=== PATIENT | male | born 1935 | race Caucasian/White ===

== ENCOUNTER 2017-02-15 04:25 | Emergency (ER) | payer MEDICARE, OTHER ==
[~2017-02-15] VITALS: Ht 170.2 cm; Wt 93.2 kg
[2017-02-15] MEDS ORDERED: AMLO10TA2 PO ×2 (04:33)
[2017-02-15] MEDS ORDERED: HYDR12.57 PO ×2 (04:33)
[2017-02-15] MEDS ORDERED: LEVO.075 PO ×2 (04:33)
[2017-02-15] MEDS ORDERED: MEGATAB4 ×2 (04:33)
[2017-02-15] MEDS ORDERED: VITA-136 ×2 (04:33)
[2017-02-15] MEDS ORDERED: ASPI81CH CHEW ×2 (04:33)
[2017-02-15] MEDS ORDERED: COQ-50CA2 PO ×2 (04:33)
[2017-02-15] MEDS ORDERED: SIMVPOW ×2 (04:33)
[2017-02-15] MEDS ORDERED: VITA100036 PO ×2 (04:33)
[2017-02-15] MEDS ORDERED: PLAV75TA29 PO ×2 (04:33)
[2017-02-15 04:34] VITALS: BP 167/79; PULSE 56; RESP 16; TEMP 98.2; O2SAT 97
[2017-02-15] MEDS ORDERED: SODIUM CHLORIDE 0.9% FLUSH 10 ML FLUSH IV FLUSH PRN (04:45)
--- NOTE | 2017-02-15 04:47 | PD ---
HPI Chief Complaint: Chest Pain Time Seen by Provider: 04:45 Travel History International Travel<30 days: No Contact w/Intl Traveler<30days: No Traveled to known affect area: No History of Present Illness HPI Patient is an 82-year-old male presents emergency department for evaluation of epigastric pain without radiation, nausea without vomiting, mild presyncopal type dizziness. Patient states started approximately 4:30 this morning. He is visiting from out of town, states he has a history of heart attack and stents but his symptoms were left shoulder pain and chest pain when this happened and completely different from current. His current pain has not happened to him before. Denies any diarrhea denies any fever. PFSH Past Medical History Cancer: Yes (prostate) High Cholesterol: Yes Hypertension: Yes Medical other: Yes (gallstones) Myocardial Infarction: Yes (3 stents) Thyroid Disease: Yes Past Surgical History Appendectomy: Yes Other Surgery: Yes (thyroidectomy) Social History Alcohol Use: No Tobacco Use: No Substance Use: No Allergies-Medications (Allergen,Severity, Reaction): Coded Allergies: Penicillin (Verified Allergy, Unknown, 02/15/17) Reported Meds & Prescriptions Reported Meds & Active Scripts Active Ultram (Tramadol HCl) 50 Mg Tab 50 Mg PO Q6H PRN Zofran Odt (Ondansetron Odt) 4 Mg Tab 4 Mg SL Q6HR PRN Reported Vitamin E (Vitamin E Acetate) 400 Unit Capsule Vitamin D3 (Cholecalciferol) 1,000 Unit Cap 1,000 Units PO DAILY Synthroid (Levothyroxine Sodium) 75 Mcg Tab 75 Mcg PO DAILY Simvastatin (Simvastain (Bulk)) 1 Pow Pow Plavix (Clopidogrel Bisulfate) 75 Mg Tab 75 Mg PO DAILY Guerrero Multivitamin For Men (Multiple Vitamins W/ Minerals) 1 Tab Tab Hydrochlorothiazide 12.5 Mg Cap 10 Mg PO DAILY Coq-10 (Coenzyme Q10 (Ubidecarenone)) 50 Mg Cap 100 Mg PO DAILY Aspirin 81 Mg Chew 81 Mg CHEW DAILY Amlodipine (Amlodipine Besylate) 10 Mg Tab 10 Mg PO DAILY Review of Systems Except as stated in HPI: all other systems reviewed are Neg Physical Exam Narrative GENERAL: Well-developed well-nourished, appears younger than stated age in no obvious distress. SKIN: Focused skin assessment warm/dry. HEAD: Atraumatic. Normocephalic. EYES: Pupils equal and round. No scleral icterus. No injection or drainage. ENT: No nasal bleeding or discharge. Mucous membranes pink and moist. NECK: Trachea midline. No JVD. CARDIOVASCULAR: Regular rate and rhythm. No murmur appreciated. RESPIRATORY: No accessory muscle use. Clear to auscultation. Breath sounds equal bilaterally. GASTROINTESTINAL: Abdomen soft, non-tender, nondistended. Hepatic and splenic margins not palpable. MUSCULOSKELETAL: No obvious deformities. No clubbing. No cyanosis. No edema. NEUROLOGICAL: Awake and alert. No obvious cranial nerve deficits. Motor grossly within normal limits. Normal speech. PSYCHIATRIC: Appropriate mood and affect; insight and judgment normal. Data Data Last Documented VS Vital Signs Date Time Temp Pulse Resp B/P Pulse Ox O2 Delivery O2 Flow Rate FiO2 02/15/17 05:44 98 Room Air 02/15/17 05:44 58 16 140/69 02/15/17 04:34 98.2 Orders Complete Blood Count With Diff (02/15/17 04:45) Comprehensive Metabolic Panel (02/15/17 04:45) Lipase (02/15/17 04:45) Prothrombin Time / Inr (Pt) (02/15/17 04:45) Act Partial Throm Time (Ptt) (02/15/17 04:45) Ct Abd/Pel W Iv Contrast(Rout) (02/15/17 04:45) Iv Access Insert/Monitor (02/15/17 04:45) Ecg Monitoring (02/15/17 04:45) Oximetry (02/15/17 04:45) Sodium Chloride 0.9% Flush (Ns Flush) (02/15/17 04:45) Chest, Single Ap (02/15/17 ) Troponin I (02/15/17 04:45) Al-Mag Hy-Si 40-40-4 Mg/Ml Liq (Mag-Al P (02/15/17 05:45) Lidocaine 2% Viscous (Xylocaine 2% Visco (02/15/17 05:45) Ondansetron Inj (Zofran Inj) (02/15/17 05:46) Ondansetron Inj (Zofran Inj) (02/15/17 06:00) Ketorolac Inj (Toradol Inj) (02/15/17 06:00) Iohexol 350 Inj (Omnipaque 350 Inj) (02/15/17 06:18) Labs Laboratory Tests Test 02/15/17 04:50 White Blood Count 6.7 TH/MM3 Red Blood Count 4.76 MIL/MM3 Hemoglobin 14.7 GM/DL Hematocrit 44.4 % Mean Corpuscular Volume 93.3 FL Mean Corpuscular Hemoglobin 30.9 PG Mean Corpuscular Hemoglobin 33.1 % Concent Red Cell Distribution Width 12.8 % Platelet Count 169 TH/MM3 Mean Platelet Volume 8.2 FL Neutrophils (%) (Auto) 42.1 % Lymphocytes (%) (Auto) 43.3 % Monocytes (%) (Auto) 11.3 % Eosinophils (%) (Auto) 2.5 % Basophils (%) (Auto) 0.8 % Neutrophils # (Auto) 2.8 TH/MM3 Lymphocytes # (Auto) 2.9 TH/MM3 Monocytes # (Auto) 0.8 TH/MM3 Eosinophils # (Auto) 0.2 TH/MM3 Basophils # (Auto) 0.1 TH/MM3 CBC Comment DIFF FINAL Differential Comment Prothrombin Time 10.4 SEC Prothromb Time International 0.9 RATIO Ratio Activated Partial 25.2 SEC Thromboplast Time Sodium Level 141 MEQ/L Potassium Level 3.5 MEQ/L Chloride Level 105 MEQ/L Carbon Dioxide Level 27.1 MEQ/L Anion Gap 9 MEQ/L Blood Urea Nitrogen 22 MG/DL Creatinine 1.20 MG/DL Estimat Glomerular Filtration 58 ML/MIN Rate Random Glucose 127 MG/DL Calcium Level 8.4 MG/DL Total Bilirubin 0.3 MG/DL Aspartate Amino Transf 27 U/L (AST/SGOT) Alanine Aminotransferase 32 U/L (ALT/SGPT) Alkaline Phosphatase 80 U/L Troponin I LESS THAN 0.02 NG/ML Total Protein 7.0 GM/DL Albumin 3.6 GM/DL Lipase 312 U/L [facility] Medical Decision Making Medical Screen Exam Complete: Yes Emergency Medical Condition: Yes Interpretation(s) EKG shows sinus first degree heart block intervals otherwise within normal limits. No concerning ST segment changes. Normal R-wave progression. Normal axis. No abnormal EKG. Differential Diagnosis Biliary colic, cholecystitis, gastritis, pancreatitis, bowel obstruction. Narrative Course Last 24 hours Impressions Abdomen/Pelvis CT 02/15/17 5122 Signed Impressions: Service Date/Time: Wednesday, February 15, 2017 06:04 - CONCLUSION: 1. Multiple punctate calcified gallstones with a single dominant 1.3 cm rim calcified stone. No biliary obstruction. 2. Old granulomatous disease. 3. Parapelvic cysts in the kidneys bilaterally. 4. Prominent prostate. Gabe Bills MD Chest X-Ray 02/15/17 0000 Signed Impressions: Service Date/Time: Wednesday, February 15, 2017 04:42 - CONCLUSION: 1. Old granulomatous disease. 2. No acute infiltrate. Gabe Bills MD Patient had episode of dry heaving after GI cocktail, given toradol and zofran. Feeling better. patient has benign abdomen. Really his history suggests biliary colic but labs and ct fairly reassuring. With his gall stones suggested he could have in-patient surgical consultation which would be fairly elective but he would like discharge to follow up after his vacation. He seems reliable to return and discussed return to ED criteria. Diagnosis Primary Impression: Biliary colic Scripts Tramadol (Ultram)50 Mg Tab50 Mg PO Q6H PRN (PAIN) #15 TAB Ref 0 Prov:Arnold Moore MD 02/15/17 Ondansetron Odt (Zofran Odt)4 Mg Tab4 Mg SL Q6HR PRN (Nausea/Vomiting) #30 TAB Ref 0 Prov:Arnold Moore MD 02/15/17 Disposition: 01 DISCHARGE HOME Condition: Stable Arnold Moore MD Feb 15, 2017 04:47
[2017-02-15 05:05] LABS: AUTOMATED NEUTROPHIL # 2.8 TH/MM3 (1.8-7.7); BASOPHIL # 0.1 TH/MM3 (0-0.2); BASOPHIL % 0.8 % (0.0-2.0); EOSINOPHIL # 0.2 TH/MM3 (0-0.4); EOSINOPHIL % 2.5 % (0.0-4.0); HEMATOCRIT 44.4 % (39.0-51.0); HEMO FLAGS DIFF FINAL; LYMPH % 43.3 % (9.0-44.0); LYMPHOCYTE # 2.9 TH/MM3 (1.0-4.8); MEAN CELL VOLUME 93.3 FL (80.0-100.0); MEAN CORPUSCULAR HEMOGLOBIN 30.9 PG (27.0-34.0); MEAN CORPUSCULAR HGB CONC 33.1 % (32.0-36.0); MONO % 11.3 % (0.0-8.0); NEUT % 42.1 % (16.0-70.0); PLATELET COUNT 169 TH/MM3 (150-450); RED BLOOD COUNT 4.76 MIL/MM3 (4.50-5.90); RED CELL DISTRIBUTION WIDTH 12.8 % (11.6-17.2); WHITE BLOOD COUNT 6.7 TH/MM3 (4.0-11.0)
[2017-02-15 05:21] LABS: APTT (PATIENT) 25.2 SEC (24.3-30.1); INTERNATIONAL NORMALIZED RATIO 0.9 RATIO; PROTHROMBIN TIME - PATIENT 10.4 SEC (9.8-11.6)
[2017-02-15 05:25] LABS: ALKALINE PHOSPHATASE 80 U/L (45-117); TOTAL BILIRUBIN ADULT 0.3 MG/DL (0.2-1.0)
--- NOTE | 2017-02-15 05:43 | RADRPT ---
EXAM DATE/TIME: 02/15/2017 04:42 [facility] COMPARISON: No previous studies available for comparison. INDICATIONS : Abdominal pain. MEDICAL HISTORY : Hypertension. Myocardial infarction. SURGICAL HISTORY : Coronary artery stent. ENCOUNTER: Initial ACUITY: 1 day PAIN SCORE: 0/10 LOCATION: Right chest FINDINGS: A single view of the chest demonstrates the lungs to be symmetrically aerated with granulomatous type calcifications. No acute infiltrate or effusion. Heart size is normal. Osseous structures are intact . CONCLUSION: 1. Old granulomatous disease. 2. No acute infiltrate. Gabe Bills MD on February 15, 2017 at 5:40 Board Certified Radiologist. This report was verified electronically.
[2017-02-15 05:44] VITALS: BP 140/69; PULSE 58; RESP 16; O2SAT 98
[2017-02-15] MEDS ORDERED: LIDOCAINE VISCOUS 2% SOLN 15 ML UDC PO ONE (05:45)
[2017-02-15] MEDS ORDERED: ALUMINUM/MAGNESIUM/SIMETH 30 ML CUP PO ONE (05:45)
[2017-02-15] MEDS ORDERED: ONDANSETRON HCL 4 MG/2 ML VIAL ONE (05:46)
[2017-02-15 05:55] LABS: ALT (GPT) 32 U/L (12-78); ANION GAP 9 MEQ/L (5-15); AST (GOT) 27 U/L (15-37); BICARBONATE 27.1 MEQ/L (21.0-32.0); BLOOD UREA NITROGEN 22 MG/DL (7-18); CHLORIDE 105 MEQ/L (98-107); GLOMERULAR FILTRATION RATE 58 ML/MIN (>89); SODIUM (NA) 141 MEQ/L (136-145)
[2017-02-15 05:56] LABS: POTASSIUM 3.5 MEQ/L (3.5-5.1)
[2017-02-15] MEDS ORDERED: KETOROLAC TROMETHAMINE 30 MG/ML (IVP) VIAL IV PUSH ONE (06:00)
[2017-02-15] MEDS ORDERED: ONDANSETRON HCL 4 MG/2 ML VIAL IV PUSH ONE (06:00)
[2017-02-15] MEDS ORDERED: IOHEXOL 350 MG/ML 10 ML VIAL (for RAD DIAG) IV ONE (06:18)
--- NOTE | 2017-02-15 06:27 | RADRPT ---
EXAM DATE/TIME: 02/15/2017 06:04 [facility] COMPARISON: No previous studies available for comparison. INDICATIONS : Epigastric pain. IV CONTRAST: 100 cc Omnipaque 350 (iohexol) IV ORAL CONTRAST: No oral contrast ingested. RADIATION DOSE: 11.252 CTDIvol (mGy) MEDICAL HISTORY : Cardiovascular disease. Hypertension. Carcinoma, prostate. SURGICAL HISTORY : Appendectomy. ENCOUNTER: Initial ACUITY: 1 day PAIN SCALE: 7/10 LOCATION: epigastric TECHNIQUE: Volumetric scanning of the abdomen and pelvis was performed. Using automated exposure control and ad justment of the mA and/or kV according to patient size, radiation dose was kept as low as reasonably achievable to obtain optimal diagnostic quality images. DICOM format image data is available electro nically for review and comparison. FINDINGS: LOWER LUNGS: Multiple punctate granulomatous type calcifications in the lung bases. No acute infiltrate LIVER: Homogeneous density without lesion. There is no dilation of the biliary tree. Multiple punctate calc ified gallstones with a single dominant 1.3 cm rim calcified stone. No biliary obstruction. SPLEEN: Normal in size with extensive punctate granulomatous calcifications. PANCREAS: Within normal limits. KIDNEYS: Normal in size and shape. There is no mass, stone or hydronephrosis. Multiple bilateral parapelvic c ysts ADRENAL GLANDS: Within normal limits. VASCULAR: There is no aortic aneurysm. BOWEL/MESENTERY: The stomach, small bowel, and colon demonstrate no acute abnormality. There is no free intraperitone al air or fluid. ABDOMINAL WALL: Within normal limits. RETROPERITONEUM: There is no lymphadenopathy. BLADDER: No wall thickening or mass. REPRODUCTIVE: Prominent prostate measuring 6 cm in diameter with a few prostatic seeds identified. INGUINAL: There is no lymphadenopathy or hernia. MUSCULOSKELETAL: Within normal limits for patient age. CONCLUSION: 1. Multiple punctate calcified gallstones with a single dominant 1.3 cm rim calcified stone. No bilia ry obstruction. 2. Old granulomatous disease. 3. Parapelvic cysts in the kidneys bilaterally. 4. Prominent prostate. Gabe Bills MD on February 15, 2017 at 6:19 Board Certified Radiologist. This report was verified electronically.
[2017-02-15] MEDS ORDERED: ULTR50TA5 PO (06:46)
[2017-02-15] MEDS ORDERED: ZOFR4TAB3 SL (06:46)
--- NOTE | 2017-02-15 15:44 | EKG ---
Date Performed: 02/15/2017 Time Performed: 04:32:57 PTAGE: 82 years EKG: Sinus rhythm WITH FIRST DEGREE AV BLOCK SEPTAL MYOCARDIAL INFARCTION ABNORMAL ECG NO PREVIOUS TRACING DOCTOR: Tyrone Zhu Interpretating Date/Time 02/15/2017 15:43:40
== END 2017-02-15 07:19 | disposition home or self-care (01) ==
LOC: NEPC 04:25
DX: K80.70 Calculus of gallbladder and bile duct without cholecystitis without obstruction (principal); I44.0 Atrioventricular block, first degree; E78.00 Pure hypercholesterolemia, unspecified; I10 Essential (primary) hypertension; I25.2 Old myocardial infarction; E07.9 Disorder of thyroid, unspecified; Z79.899 Other long term (current) drug therapy
CPT/HCPCS: 71010; 74177; 80053; 83690; 84484; 85025; 85610; 85730; 93005; 96374; 96375; 99285; J1885; J2405; Q9967

== ENCOUNTER 2017-02-15 16:03 | Inpatient (IN) | payer MEDICARE, OTHER ==
[~2017-02-15] VITALS: Ht 170.2 cm; Wt 91.9 kg
[~2017-02-15 16:03] MED LIST: AMLO10TA2 PO; ASPI81CH CHEW; COQ-50CA2 PO; HYDR12.57 PO; LEVO.075 PO; MEGATAB4; PLAV75TA29 PO; SIMVPOW; ULTR50TA5 PO; VITA-136; VITA100036 PO; ZOFR4TAB3 SL
[2017-02-15 16:07] VITALS: BP 162/79; PULSE 88; RESP 14; TEMP 99.8; O2SAT 98
[2017-02-15 16:21] VITALS: BP 155/74; PULSE 79; RESP 16; TEMP 98.8; O2SAT 97
--- NOTE | 2017-02-15 16:35 | PD ---
HPI Chief Complaint: fever Time Seen by Provider: 16:15 Travel History International Travel<30 days: No Contact w/Intl Traveler<30days: No Traveled to known affect area: No History of Present Illness HPI 82-year-old male presents with fever that developed this afternoon after he was discharged from the emergency department this morning. He states he is still having pain in his abdomen as well. He denies any other changes since he was just here this morning. He states he did not take any medication and the fever is coming down on its own. Quality is high. Severity here is 99.8. he denies specific modifying factors. He is visiting here from [place] and will be here the rest of the week. PFSH Past Medical History Hx Anticoagulant Therapy: Yes (plavix) Cancer: Yes (prostate) Cardiovascular Problems: Yes High Cholesterol: Yes Hypertension: Yes Medical other: Yes (NEUROPATHY) Myocardial Infarction: Yes (3 stents) Thyroid Disease: Yes Influenza Vaccination: No Past Surgical History Appendectomy: Yes Cardiac Surgery: Yes (3 CARDIAC STENTS-last August 2015) Other Surgery: Yes (thyroidectomy / LYPOMA REMOVED FROM BACK) Social History Alcohol Use: No Tobacco Use: No Substance Use: No Allergies-Medications (Allergen,Severity, Reaction): Coded Allergies: Penicillin (Verified Allergy, Unknown, 02/15/17) Reported Meds & Prescriptions Reported Meds & Active Scripts Active Ultram (Tramadol HCl) 50 Mg Tab 50 Mg PO Q6H PRN Zofran Odt (Ondansetron Odt) 4 Mg Tab 4 Mg SL Q6HR PRN Reported Vitamin E (Vitamin E Acetate) 400 Unit Capsule Vitamin D3 (Cholecalciferol) 1,000 Unit Cap 1,000 Units PO DAILY Synthroid (Levothyroxine Sodium) 75 Mcg Tab 75 Mcg PO DAILY Simvastatin (Simvastain (Bulk)) 1 Pow Pow Plavix (Clopidogrel Bisulfate) 75 Mg Tab 75 Mg PO DAILY Guerrero Multivitamin For Men (Multiple Vitamins W/ Minerals) 1 Tab Tab Hydrochlorothiazide 12.5 Mg Cap 10 Mg PO DAILY Coq-10 (Coenzyme Q10 (Ubidecarenone)) 50 Mg Cap 100 Mg PO DAILY Aspirin 81 Mg Chew 81 Mg CHEW DAILY Amlodipine (Amlodipine Besylate) 10 Mg Tab 10 Mg PO DAILY Review of Systems Except as stated in HPI: all other systems reviewed are Neg Physical Exam Narrative GENERAL: Well-nourished, well-developed patient. SKIN: Warm and dry. HEAD: Normocephalic and atraumatic. EYES: No injection or drainage. ENT: No nasal drainage noted. NECK: Supple, trachea midline. CARDIOVASCULAR: Regular rate and rhythm RESPIRATORY: Breath sounds equal bilaterally at apices. No accessory muscle use. GASTROINTESTINAL: Abdomen soft, tender right upper quadrant, nondistended. NEUROLOGICAL: Awake and alert. Moves all extremities. Normal speech. Data Data Last Documented VS Vital Signs Date Time Temp Pulse Resp B/P Pulse Ox O2 Delivery O2 Flow Rate FiO2 02/15/17 17:46 75 16 137/68 96 Room Air 02/15/17 16:21 98.8 Orders Complete Blood Count With Diff (02/15/17 16:15) Comprehensive Metabolic Panel (02/15/17 16:15) Lipase (02/15/17 16:15) Iv Access Insert/Monitor (02/15/17 16:15) Us Abdomen Gallbladder (02/15/17 ) Oximetry (02/15/17 16:15) Urinalysis - C+S If Indicated (02/15/17 16:35) Ciprofloxacin 400 Mg Premix (Cipro 400 M (02/15/17 17:45) Metronidazole 500 Mg Inj (Flagyl 500 Mg (02/15/17 17:45) Morphine Inj (Morphine Inj) (02/15/17 17:45) Admit Order (Ed Use Only) (02/15/17 18:37) Labs Laboratory Tests Test 02/15/17 02/15/17 16:27 16:40 White Blood Count 13.0 TH/MM3 Red Blood Count 4.79 MIL/MM3 Hemoglobin 14.9 GM/DL Hematocrit 44.7 % Mean Corpuscular Volume 93.4 FL Mean Corpuscular Hemoglobin 31.1 PG Mean Corpuscular Hemoglobin 33.3 % Concent Red Cell Distribution Width 13.0 % Platelet Count 167 TH/MM3 Mean Platelet Volume 7.8 FL Neutrophils (%) (Auto) 79.5 % Lymphocytes (%) (Auto) 11.5 % Monocytes (%) (Auto) 8.0 % Eosinophils (%) (Auto) 0.5 % Basophils (%) (Auto) 0.5 % Neutrophils # (Auto) 10.3 TH/MM3 Lymphocytes # (Auto) 1.5 TH/MM3 Monocytes # (Auto) 1.0 TH/MM3 Eosinophils # (Auto) 0.1 TH/MM3 Basophils # (Auto) 0.1 TH/MM3 CBC Comment DIFF FINAL Differential Comment Sodium Level 140 MEQ/L Potassium Level 3.6 MEQ/L Chloride Level 105 MEQ/L Carbon Dioxide Level 26.4 MEQ/L Anion Gap 9 MEQ/L Blood Urea Nitrogen 17 MG/DL Creatinine 1.15 MG/DL Estimat Glomerular Filtration 61 ML/MIN Rate Random Glucose 122 MG/DL Calcium Level 8.4 MG/DL Total Bilirubin 0.6 MG/DL Aspartate Amino Transf 22 U/L (AST/SGOT) Alanine Aminotransferase 31 U/L (ALT/SGPT) Alkaline Phosphatase 67 U/L Total Protein 7.2 GM/DL Albumin 3.6 GM/DL Lipase 155 U/L Urine Color YELLOW Urine Turbidity CLEAR Urine pH 5.5 Urine Specific [place] 1.031 Urine Protein NEG mg/dL Urine Glucose (UA) NEG mg/dL Urine Ketones NEG mg/dL Urine Occult Blood NEG Urine Nitrite NEG Urine Bilirubin NEG Urine Urobilinogen LESS THAN 2.0 MG/DL Urine Leukocyte Esterase NEG Urine RBC LESS THAN 1 /hpf Urine WBC LESS THAN 1 /hpf Urine Squamous Epithelial <1 /hpf Cells Urine Mucus FEW /lpf Microscopic Urinalysis Comment CULT NOT INDICATED MDM Medical Decision Making Medical Screen Exam Complete: Yes Emergency Medical Condition: Yes Medical Record Reviewed: Yes (past history confirmed) Interpretation(s) CBC & BMP Diagram 02/15/17 16:27 Last 24 hours Impressions Gall Bladder Ultrasound 02/15/17 0000 Signed Impressions: Service Date/Time: Wednesday, February 15, 2017 16:53 - CONCLUSION: 1. Cholelithiasis with gallbladder wall thickening concerning for cholecystitis. 2. Nonvisualization of the pancreas. 3. Mildly echogenic liver which can be seen with mild hepatic steatosis. Chavez Munoz MD Differential Diagnosis Cholecystitis, cholelithiasis, UTI, URI Narrative Course We will recheck blood work and check gallbladder ultrasound and reevaluate ed workup with cholecystitis, will dose with ciprofloxacin and flagyl and admit for further care Physician Communication Physician Communication dr cedillo states to medicine, keep npo and antibitoics, will need cardiac clearance dr negron agrees to admit Diagnosis Primary Impression: Cholecystitis Admitting Information Admitting Physician Requests: Admit Elsa Yo MD Feb 15, 2017 16:35
[2017-02-15 16:37] LABS: AUTOMATED NEUTROPHIL # 10.3 TH/MM3 (1.8-7.7); BASOPHIL # 0.1 TH/MM3 (0-0.2); BASOPHIL % 0.5 % (0.0-2.0); EOSINOPHIL # 0.1 TH/MM3 (0-0.4); EOSINOPHIL % 0.5 % (0.0-4.0); HEMATOCRIT 44.7 % (39.0-51.0); HEMO FLAGS DIFF FINAL; LYMPH % 11.5 % (9.0-44.0); LYMPHOCYTE # 1.5 TH/MM3 (1.0-4.8); MEAN CELL VOLUME 93.4 FL (80.0-100.0); MEAN CORPUSCULAR HEMOGLOBIN 31.1 PG (27.0-34.0); MEAN CORPUSCULAR HGB CONC 33.3 % (32.0-36.0); NEUT % 79.5 % (16.0-70.0); PLATELET COUNT 167 TH/MM3 (150-450); RED BLOOD COUNT 4.79 MIL/MM3 (4.50-5.90)
[2017-02-15 16:54] LABS: ALT (GPT) 31 U/L (12-78); ANION GAP 9 MEQ/L (5-15); AST (GOT) 22 U/L (15-37); BICARBONATE 26.4 MEQ/L (21.0-32.0); BLOOD UREA NITROGEN 17 MG/DL (7-18); CHLORIDE 105 MEQ/L (98-107); GLOMERULAR FILTRATION RATE 61 ML/MIN (>89); POTASSIUM 3.6 MEQ/L (3.5-5.1); SODIUM (NA) 140 MEQ/L (136-145)
[2017-02-15 16:55] LABS: ALKALINE PHOSPHATASE 67 U/L (45-117); TOTAL BILIRUBIN ADULT 0.6 MG/DL (0.2-1.0)
[2017-02-15 17:02] LABS: BLOOD, URINE NEG (NEG); COMMENT (UR) CULT NOT INDICATED; CULTURE IF INDICATED CULT NOT INDICATED; GLUCOSE,URINE NEG (NEG); KETONE, URINE NEG (NEG); MUCUS URINE FEW /lpf (OCC); NITRITE,URINE NEG (NEG); PH, URINE 5.5 (5.0-8.5); SQUAMOUS EPITHELIAL CELL URINE <1 /hpf (0-5); URINE COLOR YELLOW (YELLW/STRAW)
--- NOTE | 2017-02-15 17:34 | RADRPT ---
EXAM DATE/TIME: 02/15/2017 16:53 [facility] COMPARISON: No previous studies available for comparison. INDICATIONS : Right upper quadrant pain. MEDICAL HISTORY : Hypertension. Hypercholesterolemia. Carcinoma, prostate. Myocardial infarction. Neuropathy. Anticoagu lant therapy, Plavix. SURGICAL HISTORY : Appendectomy. Coronary artery stent. Thyroidectomy. Right knee surgery. Lypoma removal from back. ENCOUNTER: Initial ACUITY: 1 day PAIN SCORE: 7/10 LOCATION: Right upper quadrant MEASUREMENTS: LIVER: 17.4 cm length COMMON DUCT: 5 mm RIGHT KIDNEY: 11.3 x 4.9 x 5.2 cm FINDINGS: LIVER: Slightly echogenic without focal lesion or ductal dilatation. Hepatopedal flow. COMMON DUCT: No intraluminal mass or stone visualized. GALLBLADDER: Contains gallstones and sludge with wall thickening and pericholecystic fluid. PANCREAS: Not well seen due to overlying bowel gas. RIGHT KIDNEY: No evidence of hydronephrosis, stone, or mass. CONCLUSION: 1. Cholelithiasis with gallbladder wall thickening concerning for cholecystitis. 2. Nonvisualization of the pancreas. 3. Mildly echogenic liver which can be seen with mild hepatic steatosis. Chavez Munoz MD on February 15, 2017 at 17:31 Board Certified Radiologist. This report was verified electronically.
[2017-02-15] MEDS ORDERED: CIPROFLOXACIN 400 MG PREMIX 200 ML IV ONE (17:45)
[2017-02-15] MEDS ORDERED: metroNIDAZOLE 500 MG INJ 100 ML IV ONE (17:45)
[2017-02-15] MEDS ORDERED: MORPHINE SULFATE 4 MG/ML INJ IV PUSH ONE (17:45)
[2017-02-15 17:46] VITALS: BP 137/68; PULSE 75; RESP 16; O2SAT 96
[2017-02-15 19:08] VITALS: BP 138/69; PULSE 74; RESP 19; O2SAT 97
[2017-02-15] MEDS ORDERED: NALOXONE HCL 0.4 MG/ML AMP IV PRN (19:30)
[2017-02-15] MEDS ORDERED: LACTULOSE SYRUP 20 GM/30 ML CUP PO PRN (19:30)
[2017-02-15] MEDS ORDERED: MAGNESIUM HYDROXIDE SUSP 30 ML CUP PO PRN (19:30)
[2017-02-15] MEDS ORDERED: ONDANSETRON HCL 4 MG/2 ML VIAL IVP PRN (19:30)
[2017-02-15] MEDS ORDERED: BISACODYL 10 MG SUPP RECTAL PRN (19:30)
[2017-02-15] MEDS ORDERED: SENNOSIDES 8.6 MG TAB PO PRN (19:30)
--- NOTE | 2017-02-15 20:06 | HHI.HP ---
[facility]Staff Admission Diagnosis cholecystitis Diagnoses: Chief Complaint: abdominal pain Travel History International Travel<30 Days: No Contact w/Intl Traveler <30 Da: No Traveled to Known Affected Are: No History of Present Illness Written by SAMARA Jiang acting as scribe for [Crispin] on 02/15/17 at 20:03. 82 y/o male with a history of [place] with cardiac stents presented to the ED with complaints of epigastric pain. Patient states he got up to go to the bathroom and felt sharp pain in his epigastric region, and he felt he may have been having another [place]. He tried to vomit but no emesis produced. He states the abdominal pain was sharp and now is much better since receiving medications. He states at home he did have a fever, no chills. Denies any chest pain, shortness of breath, constipation or diarrhea. 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 Past Family Social History Past Medical History Prostate cancer HTN [place] with 3 stents placed Neuropathy Hypothyroidism Past Surgical History Thyroidectomy ACL repair RT Lypoma removal from [id number] Reported Medications Reported Meds & Active Scripts Active Ultram (Tramadol HCl) 50 Mg Tab 50 Mg PO Q6H PRN Zofran Odt (Ondansetron Odt) 4 Mg Tab 4 Mg SL Q6HR PRN Reported Vitamin E (Vitamin E Acetate) 400 Unit Capsule Vitamin D3 (Cholecalciferol) 1,000 Unit Cap 1,000 Units PO DAILY Synthroid (Levothyroxine Sodium) 75 Mcg Tab 75 Mcg PO DAILY Simvastatin (Simvastain (Bulk)) 1 Pow Pow Plavix (Clopidogrel Bisulfate) 75 Mg Tab 75 Mg PO DAILY Guerrero Multivitamin For Men (Multiple Vitamins W/ Minerals) 1 Tab Tab Hydrochlorothiazide 12.5 Mg Cap 10 Mg PO DAILY Coq-10 (Coenzyme Q10 (Ubidecarenone)) 50 Mg Cap 100 Mg PO DAILY Aspirin 81 Mg Chew 81 Mg CHEW DAILY Amlodipine (Amlodipine Besylate) 10 Mg Tab 10 Mg PO DAILY Allergies: Coded Allergies: Penicillin (Verified Allergy, Unknown, 02/15/17) Active Ordered Medications Current Medications Medications (Trade) Dose Ordered Sig/Stephen Route Start Time Stop Time Status Last Admin (Zofran Inj) 4 mg Q6H PRN IVP 02/15/17 19:30 (Dilaudid Pf Inj) 0.2 mg Q3H PRN IV 02/15/17 19:30 (Narcan Inj) 0.4 mg UNSCH PRN IV 02/15/17 19:30 (Milk Of Magnesia Liq) 30 ml Q12H PRN PO 02/15/17 19:30 (Senokot) 17.2 mg Q12H PRN PO 02/15/17 19:30 (Dulcolax Supp) 10 mg DAILY PRN RECTAL 02/15/17 19:30 (Lactulose Liq) 30 ml DAILY PRN PO 02/15/17 19:30 Family History Dad: colorectal cancer Mom: Alzheimer's Social History Tobacco use: Denies Alcohol use: Denies Illicit drug use: Denies Physical Exam Vital Signs Vital Signs Date Time Temp Pulse Resp B/P Pulse Ox O2 Delivery O2 Flow Rate FiO2 02/15/17 19:08 74 19 138/69 97 Room Air 02/15/17 17:46 75 16 137/68 96 Room Air 02/15/17 16:21 98.8 79 16 155/74 97 Room Air 02/15/17 16:07 99.8 88 14 162/79 98 Physical Exam GENERAL: This is a well-nourished, well-developed patient, in no apparent distress. SKIN: No rashes, ecchymoses or lesions. Cool and dry. HEAD: Atraumatic. Normocephalic. No temporal or scalp tenderness. EYES: Pupils equal round and reactive. Extraocular motions intact. No scleral icterus. No injection or drainage. ENT: Nose without bleeding, purulent drainage or septal hematoma. Throat without erythema, tonsillar hypertrophy or exudate. Uvula midline. Airway patent. NECK: Trachea midline. No JVD or lymphadenopathy. CARDIOVASCULAR: Regular rate and rhythm without murmurs, gallops, or rubs. RESPIRATORY: Clear to auscultation. Breath sounds equal bilaterally. No wheezes , rales, or rhonchi. GASTROINTESTINAL: Abdomen soft, non-tender, nondistended. No hepato-splenomegaly , or palpable masses. No guarding. MUSCULOSKELETAL: Extremities without clubbing, cyanosis, or edema. No joint tenderness, effusion, or edema noted. No calf tenderness. NEUROLOGICAL: Awake and alert. Motor and sensory grossly within normal limits. Normal speech. Laboratory Laboratory Tests Test 02/15/17 02/15/17 16:27 16:40 White Blood Count 13.0 Red Blood Count 4.79 Hemoglobin 14.9 Hematocrit 44.7 Mean Corpuscular Volume 93.4 Mean Corpuscular Hemoglobin 31.1 Mean Corpuscular Hemoglobin 33.3 Concent Red Cell Distribution Width 13.0 Platelet Count 167 Mean Platelet Volume 7.8 Neutrophils (%) (Auto) 79.5 Lymphocytes (%) (Auto) 11.5 Monocytes (%) (Auto) 8.0 Eosinophils (%) (Auto) 0.5 Basophils (%) (Auto) 0.5 Neutrophils # (Auto) 10.3 Lymphocytes # (Auto) 1.5 Monocytes # (Auto) 1.0 Eosinophils # (Auto) 0.1 Basophils # (Auto) 0.1 CBC Comment DIFF FINAL Differential Comment Sodium Level 140 Potassium Level 3.6 Chloride Level 105 Carbon Dioxide Level 26.4 Anion Gap 9 Blood Urea Nitrogen 17 Creatinine 1.15 Estimat Glomerular Filtration 61 Rate Random Glucose 122 Calcium Level 8.4 Total Bilirubin 0.6 Aspartate Amino Transf 22 (AST/SGOT) Alanine Aminotransferase 31 (ALT/SGPT) Alkaline Phosphatase 67 Total Protein 7.2 Albumin 3.6 Lipase 155 Urine Color YELLOW Urine Turbidity CLEAR Urine pH 5.5 Urine Specific [place] 1.031 Urine Protein NEG Urine Glucose (UA) NEG Urine Ketones NEG Urine Occult Blood NEG Urine Nitrite NEG Urine Bilirubin NEG Urine Urobilinogen LESS THAN 2.0 Urine Leukocyte Esterase NEG Urine RBC LESS THAN 1 Urine WBC LESS THAN 1 Urine Squamous Epithelial <1 Cells Urine Mucus FEW Microscopic Urinalysis Comment CULT NOT INDICATED Result Diagram: 02/15/17 1627 02/15/17 1627 Imaging Last Impressions Gall Bladder Ultrasound 02/15/17 0000 Signed Impressions: Service Date/Time: Wednesday, February 15, 2017 16:53 - CONCLUSION: 1. Cholelithiasis with gallbladder wall thickening concerning for cholecystitis. 2. Nonvisualization of the pancreas. 3. Mildly echogenic liver which can be seen with mild hepatic steatosis. Chavez Munoz MD Assessment and Plan Problem List: (1) Cholecystitis ICD Code: K81.9 Status: Acute (2) Leukocytosis ICD Code: D72.829 Status: Acute (3) Coronary artery disease ICD Code: I25.10 Status: Chronic Assessment and Plan 82 y/o male with a history of [place] with cardiac stents presented to the ED with complaints of epigastric pain. Cholecystitis, acute Gallbladder US reviewed shows Cholelithiasis with gallbladder wall thickening concerning for cholecystitis. Nonvisualization of the pancreas. Mildly echogenic liver which can be seen with mild hepatic steatosis. -Continue IV antibiotics Cipro and Flagyl -Consult general surgery -Pain management with IV Dilaudid Leukocytosis, WBC is 13.0 likely due to cholecystitis -Antibiotics as above -CBC in a.m. CAD, chronic, patient with history of [place] and stent placement EKG reviewed shows sinus rhythm with first-degree block -Consult cardiology for medical clearance for surgery DVT prophylaxis: SCDs This note was transcribed by theo Tom. I, Dr. Walker Roa personally performed the history, physical exam, and medical decision making; and confirmed the accuracy of the information in the transcribed note. Authenticated by Dr. Walker Roa on 02/15/17 at 21:05. Discussed Condition With Patient Physician Certification 2 Midnight Certification Type: Admission for Inpatient Services Order for Inpatient Services The services are ordered in accordance with Medicare regulations or non- Medicare payer requirements, as applicable. In the case of services not specified as inpatient-only, they are appropriately provided as inpatient services in accordance with the 2-midnight benchmark. Estimated LOS (days): 2 2 days is the estimated time the patient will need to remain in the hospital, assuming treatment plan goals are met and no additional complications. Post-Hospital Plan: Home Lynne Tom Feb 15, 2017 20:06 Walker Roa MD Feb 15, 2017 21:05
[2017-02-15] MEDS: HYDROmorphone HCL PF 1 MG/ML VIAL IV PRN (20:42)
[2017-02-15 21:30] VITALS: BP 119/56; PULSE 74; RESP 22; TEMP 100; O2SAT 94
[2017-02-15 22:00] VITALS: PULSE 71
[2017-02-16] VITALS: BP 107/57; PULSE 74; RESP 20; TEMP 99.9; O2SAT 98
[2017-02-16] MEDS: metroNIDAZOLE 500 MG INJ 100 ML IV SCH ×3 (03:13→18:53)
[2017-02-16 04:00] VITALS: BP 138/66; PULSE 68; RESP 18; TEMP 99.9; O2SAT 96
[2017-02-16 04:08] LABS: AUTOMATED NEUTROPHIL # 9.4 TH/MM3 (1.8-7.7); BASOPHIL % 0.3 % (0.0-2.0); EOSINOPHIL % 0.3 % (0.0-4.0); HEMATOCRIT 41.3 % (39.0-51.0); HEMO FLAGS DIFF FINAL; LYMPH % 11.6 % (9.0-44.0); LYMPHOCYTE # 1.4 TH/MM3 (1.0-4.8); MEAN CELL VOLUME 93.1 FL (80.0-100.0); MEAN CORPUSCULAR HEMOGLOBIN 31.6 PG (27.0-34.0); MEAN CORPUSCULAR HGB CONC 33.9 % (32.0-36.0); NEUT % 78.8 % (16.0-70.0); PLATELET COUNT 151 TH/MM3 (150-450); RED BLOOD COUNT 4.44 MIL/MM3 (4.50-5.90); RED CELL DISTRIBUTION WIDTH 12.8 % (11.6-17.2); WHITE BLOOD COUNT 11.9 TH/MM3 (4.0-11.0)
[2017-02-16 04:20] LABS: ALT (GPT) 26 U/L (12-78); ANION GAP 7 MEQ/L (5-15); AST (GOT) 21 U/L (15-37); BICARBONATE 27.9 MEQ/L (21.0-32.0); BLOOD UREA NITROGEN 13 MG/DL (7-18); CHLORIDE 104 MEQ/L (98-107); GLOMERULAR FILTRATION RATE 65 ML/MIN (>89); POTASSIUM 3.6 MEQ/L (3.5-5.1); SODIUM (NA) 139 MEQ/L (136-145)
[2017-02-16 04:22] LABS: ALKALINE PHOSPHATASE 56 U/L (45-117); TOTAL BILIRUBIN ADULT 0.9 MG/DL (0.2-1.0)
[2017-02-16] MEDS: CIPROFLOXACIN 400 MG PREMIX 200 ML IV SCH ×2 (05:03→16:44)
[2017-02-16] MEDS: HYDROmorphone HCL PF 1 MG/ML VIAL IV PRN ×4 (05:04→16:57)
[2017-02-16 08:00] VITALS: BP 119/66; PULSE 74; RESP 17; TEMP 99.6; O2SAT 94
--- NOTE | 2017-02-16 10:05 | HHI.PR ---
Subjective Subjective Notes pain better this am Objective Vitals/I&O Vital Signs Date Time Temp Pulse Resp B/P Pulse Ox O2 Delivery O2 Flow Rate FiO2 02/16/17 08:00 99.6 74 17 119/66 94 02/15/17 19:08 Room Air Labs Laboratory Tests Test 02/15/17 02/15/17 02/16/17 16:27 16:40 03:30 White Blood Count 13.0 11.9 Red Blood Count 4.79 4.44 Hemoglobin 14.9 14.0 Hematocrit 44.7 41.3 Mean Corpuscular Volume 93.4 93.1 Mean Corpuscular Hemoglobin 31.1 31.6 Mean Corpuscular Hemoglobin 33.3 33.9 Concent Red Cell Distribution Width 13.0 12.8 Platelet Count 167 151 Mean Platelet Volume 7.8 8.1 Neutrophils (%) (Auto) 79.5 78.8 Lymphocytes (%) (Auto) 11.5 11.6 Monocytes (%) (Auto) 8.0 9.0 Eosinophils (%) (Auto) 0.5 0.3 Basophils (%) (Auto) 0.5 0.3 Neutrophils # (Auto) 10.3 9.4 Lymphocytes # (Auto) 1.5 1.4 Monocytes # (Auto) 1.0 1.1 Eosinophils # (Auto) 0.1 0.0 Basophils # (Auto) 0.1 0.0 CBC Comment DIFF FINAL DIFF FINAL Differential Comment Sodium Level 140 139 Potassium Level 3.6 3.6 Chloride Level 105 104 Carbon Dioxide Level 26.4 27.9 Anion Gap 9 7 Blood Urea Nitrogen 17 13 Creatinine 1.15 1.09 Estimat Glomerular Filtration 61 65 Rate Random Glucose 122 116 Calcium Level 8.4 8.2 Total Bilirubin 0.6 0.9 Aspartate Amino Transf 22 21 (AST/SGOT) Alanine Aminotransferase 31 26 (ALT/SGPT) Alkaline Phosphatase 67 56 Total Protein 7.2 6.5 Albumin 3.6 3.1 Lipase 155 Urine Color YELLOW Urine Turbidity CLEAR Urine pH 5.5 Urine Specific [place] 1.031 Urine Protein NEG Urine Glucose (UA) NEG Urine Ketones NEG Urine Occult Blood NEG Urine Nitrite NEG Urine Bilirubin NEG Urine Urobilinogen LESS THAN 2.0 Urine Leukocyte Esterase NEG Urine RBC LESS THAN 1 Urine WBC LESS THAN 1 Urine Squamous Epithelial <1 Cells Urine Mucus FEW Microscopic Urinalysis Comment CULT NOT INDICATED Abdomen: Other (soft nt/nd) A/P Assessment and Plan 82 y/o male with a history of [place] with cardiac stents presented with Cholecystitis, acute PLAN Lap victoria when cleared by Jimbo Vines MD Feb 16, 2017 10:04
--- NOTE | 2017-02-16 10:20 | HHI.PR ---
Subjective Remarks Follow-up for abdominal pain, nausea/ vomiting. Patient denies abdominal pain. He stated that he does have his typical headache. Patient stated that nothing really works at home for it, it goes away on its own. Patient stated that Dilaudid is helping with his headache and hospital. Denied any nausea or vomiting. Objective Vitals Vital Signs Date Time Temp Pulse Resp B/P Pulse Ox O2 Delivery O2 Flow Rate FiO2 02/16/17 08:00 99.6 74 17 119/66 94 02/16/17 04:00 99.9 68 18 138/66 96 02/16/17 00:00 99.9 74 20 107/57 98 02/15/17 22:00 71 02/15/17 21:30 100.0 74 22 119/56 94 02/15/17 19:08 74 19 138/69 97 Room Air 02/15/17 17:46 75 16 137/68 96 Room Air 02/15/17 16:21 98.8 79 16 155/74 97 Room Air 02/15/17 16:07 99.8 88 14 162/79 98 I/O 02/15/17 02/15/17 02/15/17 02/16/17 02/16/17 02/16/17 07:00 15:00 23:00 07:00 15:00 23:00 Intake Total 0 ml 0 ml Balance 0 ml 0 ml Intake Oral 0 ml 0 ml # Voids 0 2 # Bowel Movements 0 0 Result Diagram: 02/16/1732902/16/17 0330 Objective Remarks GENERAL: In no acute distress CARDIOVASCULAR: Regular rate and rhythm without murmurs, gallops, or rubs. RESPIRATORY: Breath sounds equal bilaterally. No accessory muscle use. GASTROINTESTINAL: Abdomen soft, non-tender, nondistended. neuro AAO X3, CN 2-12 is intact. Motor and sensation grossly intact. Medications and IVs Current Medications Ciprofloxacin/ Dextrose 200 ml @ 200 mls/hr ONCE ONCE IV Last administered on 02/15/17 17:59; Start 02/15/17 at 17:45; Stop 02/15/17 at 18:44; Status DC Metronidazole (Flagyl 500 Mg Inj) 100 ml @ 100 mls/hr ONCE ONCE IV Last administered on 02/15/17 19:12; Start 02/15/17 at 17:45; Stop 02/15/17 at 18:44; Status DC Morphine Sulfate (Morphine Inj) 4 mg ONCE ONCE IV PUSH Last administered on 17:58; Start 02/15/17 at 17:45; Stop 02/15/17 at 17:46; Status DC Ondansetron HCl (Zofran Inj) 4 mg Q6H PRN IVP NAUSEA OR VOMITING; Start at 19:30 Hydromorphone HCl (Dilaudid Pf Inj) 0.2 mg Q3H PRN IV Pain 3-10 if unable to take PO Last administered on 02/16/17 08:07; Start 02/15/17 at 19:30 Naloxone HCl (Narcan Inj) 0.4 mg UNSCH PRN IV SEE LABEL COMMENTS; Start at 19:30 Magnesium Hydroxide (Milk Of Magnesia Liq) 30 ml Q12H PRN PO MILD - MODERATE CONSTIPATION; Start 02/15/17 at 19:30 Sennosides (Senokot) 17.2 mg Q12H PRN PO MODERATE - SEVERE CONSTIPATION; Start 02/15/17 at 19:30 Bisacodyl (Dulcolax Supp) 10 mg DAILY PRN RECTAL SEVERE CONSITIPATION; Start at 19:30 Lactulose 30 ml 30 ml DAILY PRN PO SEVERE CONSITIPATION; Start 02/15/17 at 19:30 Metronidazole 100 ml @ 100 mls/hr Q8H IV Last administered on 02/16/17 03:13; Start 02/16/17 at 03:00 Ciprofloxacin/ Dextrose 200 ml @ 200 mls/hr Q12H IV Last administered on 05:03; Start 02/16/17 at 06:00 Sodium Chloride (NS 1000 ml Inj) 1,000 ml @ 70 mls/hr [id number] IV ; Start at 09:45 A/P Problem List: (1) Cholecystitis ICD Code: K81.9 Status: Acute (2) Leukocytosis ICD Code: D72.829 Status: Acute (3) Coronary artery disease ICD Code: I25.10 Status: Chronic Assessment and Plan 82 y/o male with a history of [place] with cardiac stents presented to the ED with complaints of epigastric pain. Cholecystitis, acute -Ultrasound of Gallbladder shows Cholelithiasis with gallbladder wall thickening concerning for cholecystitis. Nonvisualization of the pancreas. Mildly echogenic liver which can be seen with mild hepatic steatosis. -Patient currently on Cipro and Flagyl. -since patient has been having emesis and is nothing by mouth we'll start IV fluids. -Pending cardiac clearance before arthroscopic cholecystectomy. Leukocytosis, WBC is 13.0 likely due to cholecystitis -Antibiotics as above CAD, chronic, patient with history of [place] and stent placement -Resume home medication. -Senior Manager Quality Assurance consulted for cardiac clearance. DVT prophylaxis: Laura Orourke MD Feb 16, 2017 10:19
[2017-02-16] MEDS: SODIUM CHLOR 0.9% 1000 ML INJ 1,000 ML IV SCH (11:45)
[2017-02-16 12:00] VITALS: BP 143/66; PULSE 81; RESP 16; TEMP 100; O2SAT 94
--- NOTE | 2017-02-16 12:13 | EKG ---
Date Performed: 02/16/2017 Time Performed: 11:15:14 PTAGE: 82 years EKG: Sinus rhythm WITH FIRST DEGREE AV BLOCK WITH OCCASIONAL SUPRAVENTRICULAR PREMATURE COMPLEXES ABNORMAL ECG PREVIOUS TRACING : 02/15/2017 04.32 Compared to prior tracing no significant change DOCTOR: Tyrone Zhu Interpretating Date/Time 02/16/2017 12:11:12
--- NOTE | 2017-02-16 12:45 | MB ---
cc: BRADFORD DORADO MD DATE OF CONSULTATION: 02/16/2017 REASON FOR CONSULTATION: Preoperative evaluation. HISTORY OF PRESENT ILLNESS: The patient is a very pleasant 82-year-old gentleman who lives in [place] and was here on vacation when he began having epigastric pain and thus presented to the emergency department. He has had a gallbladder ultrasound which was concerning for a cholecystitis. I have been asked to provide preoperative evaluation prior to cholecystectomy. Currently the patient feels well though he has mild lower epigastric discomfort. He denies any chest pain, shortness breath, lightheadedness or dizziness. PAST MEDICAL HISTORY: 1. Coronary artery disease: Per patient, he has four stents, most recently to the right coronary in August of 2015 but also with at least one stent to the left anterior descending. 2. Myocardial infarction. 3. Neuropathy. 4. Hypothyroidism. 5. Hypertension. 6. Prostate cancer. CURRENT MEDICATIONS: 1. Ciprofloxacin. 2. Flagyl. ALLERGIES: PENICILLIN. PHYSICAL EXAMINATION: VITAL SIGNS: Temperature 99.6 down from 100, pulse 74, respiratory rate 17, blood pressure 119/66 satting 94% on room air. GENERAL: In general, a pleasant well-appearing gentleman in no distress. NECK: No jugular venous distention. LUNGS: Clear to auscultation bilaterally. CARDIOVASCULAR: Regular rate and rhythm. No murmurs appreciated. EXTREMITIES: No edema. LABORATORY DATA: Sodium 139, potassium 3.6, chloride 104, bicarb 27.9, BUN 13, creatinine 09, glucose 116. White count 11.9 down from 13, hematocrit 41.3, platelets 151,000. EKGS: EKG has not been done. IMPRESSION: Preoperative evaluation: The patient with known coronary disease and a relatively recent stent done last year presents with signs and symptoms consistent with acute cholecystitis. I believe a nuclear stress test to risk stratify him would be useful to ensure no major active ischemia. Presuming none, or only mild ischemia, would provide clearance at that time. If he has significant ischemia, we will have to re-evaluate. Further recommendations will based on his clinical course and stress test. Thank you again for the opportunity to participate in this patient's care. Bradford Dorado MD [facility] /11:01 AM /12:44 PM
[2017-02-16] MEDS ORDERED: REGADENOSON INJ 0.4 MG/5 ML SYR ONE (15:11)
[2017-02-16 16:46] VITALS: BP 137/75; PULSE 82; RESP 19; TEMP 99.4; O2SAT 94
--- NOTE | 2017-02-16 16:51 | RADRPT ---
EXAM DATE/TIME: 02/16/2017 14:47 [place] COMPARISON: No previous studies available for comparison. INDICATIONS : Risk stratification prior to general anesthsia. Coronary artery disease. Myocardial infarction. DOSE: 26.7 mCi Tc99m Myoview at stress. 8.7 mCi Tc99m Myoview at rest. 0.4 mg Lexiscan STRESS SYMPTOMS: Shortness of breath and nausea. EJECTION FRACTION: 70% MEDICAL HISTORY : Carcinoma, prostate. Hypertension. SURGICAL HISTORY : Thyroidectomy. Coronary artery stent. ENCOUNTER: Initial ACUITY: 1 day PAIN SCALE: 4/10 LOCATION: Right upper quadrant TECHNIQUE: The patient underwent pharmacologic stress with infusion of prescribed dose. Continuous ECG tracing was monitored during stress. Gated SPECT imaging was performed after stress and conventional SPECT i maging was performed at rest. The examination was performed on a SPECT/CT scanner, both attenuation and non-corrected datasets were reviewed. FINDINGS: DISTRIBUTION: The maximum perfused segment at stress is in the inferior wall. PERFUSION STUDY: The pattern of perfusion at stress shows fixed diminished perfusion to the apex with no reversibility . GATED STUDY: There is intact wall motion and thickening without hypokinetic or dyskinetic segments. CONCLUSION: 1. 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 2. No scintigraphic findings of ischemia. 3. Excellent wall motion throughout with an estimated ejection fraction of 70%. RISK CATEGORY: Low (<1% Annual Mortality Rate) Gabe Bills MD on February 16, 2017 at 16:48 Board Certified Radiologist. This report was verified electronically.
[2017-02-16 20:00] VITALS: BP 132/67; PULSE 70; RESP 17; TEMP 99; O2SAT 97
[2017-02-17] MEDS: SODIUM CHLOR 0.9% 1000 ML INJ 1,000 ML IV SCH ×2 (00:03→14:21)
[2017-02-17 00:05] VITALS: BP 127/61; PULSE 73; RESP 18; TEMP 98; O2SAT 92
[2017-02-17] MEDS: metroNIDAZOLE 500 MG INJ 100 ML IV SCH ×3 (03:00→18:28)
[2017-02-17 04:00] VITALS: BP 100/53; PULSE 69; RESP 18; TEMP 98.8; O2SAT 93
[2017-02-17] MEDS: CIPROFLOXACIN 400 MG PREMIX 200 ML IV SCH ×2 (05:21→17:40)
[2017-02-17 08:00] VITALS: BP 126/59; PULSE 68; RESP 17; TEMP 99; O2SAT 94
--- NOTE | 2017-02-17 08:44 | PD.CARD.PN ---
Subjective Subjective Remarks Pt feels well, asymptomatic, hungry Objective Medications Administered Medications Medications (Trade) Dose Ordered Sig/Stephen Route PRN Reason Start Time Stop Time Status Last Admin Dose Admin Hydromorphone HCl 0.2 mg 0.2 mg Q3H PRN IV Pain 3-10 if unable to take PO 02/15/17 19:30 02/16/17 16:57 Metronidazole 100 ml @ 100 mls/hr Q8H IV 02/16/17 03:00 02/17/17 03:00 Ciprofloxacin/ Dextrose 200 ml @ 200 mls/hr Q12H IV 02/16/17 06:00 02/17/17 05:21 Sodium Chloride (NS 1000 ml Inj) 1,000 ml @ 70 mls/hr [id number] IV 02/16/17 09:45 02/17/17 00:03 Vital Signs / I&O Vital Signs Date Time Temp Pulse Resp B/P Pulse Ox O2 Delivery O2 Flow Rate FiO2 02/17/17 04:00 98.8 69 18 100/53 93 02/17/17 00:05 98.0 73 18 127/61 92 02/16/17 20:00 99.0 70 17 132/67 97 02/16/17 16:46 99.4 82 19 137/75 94 02/16/17 12:00 100.0 81 16 143/66 94 I/O 02/16/17 02/16/17 02/16/17 02/17/17 02/17/17 02/17/17 06:59 14:59 22:59 06:59 14:59 22:59 Intake Total 0 ml 0 ml 212 ml 652 ml Output Total 400 ml 450 ml 200 ml Balance 0 ml -400 ml -238 ml 452 ml Intake Oral 0 ml 0 ml 0 ml IV Total 212 ml 652 ml Output Urine Total 400 ml 450 ml 200 ml # Voids 2 # Bowel Movements 0 0 0 Physical Exam GENERAL: This is a well-nourished, well-developed patient, in no apparent distress. CARDIOVASCULAR: Regular rate and rhythm without murmurs, gallops, or rubs. RESPIRATORY: Clear to auscultation. Breath sounds equal bilaterally. No wheezes , rales, or rhonchi. GASTROINTESTINAL: Abdomen soft, very mildly tender RUQ, nondistended. Normal active bowel sounds MUSCULOSKELETAL: Extremities without clubbing, cyanosis, or edema. NEURO: Alert & Oriented x4 to person, place, time, situation. Moves all ext x4 Imaging Last Impressions Myocardial Perfusion Scan Nuc Med 02/16/17 0000 Signed Impressions: Service Date/Time: Thursday, February 16, 2017 14:47 - CONCLUSION: 1. 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 2. No scintigraphic findings of ischemia. 3. Excellent wall motion throughout with an estimated ejection fraction of 70%%. RISK CATEGORY: Low (<1%% Annual Mortality Rate) Gabe Bills MD Gall Bladder Ultrasound 02/15/17 0000 Signed Impressions: Service Date/Time: Wednesday, February 15, 2017 16:53 - CONCLUSION: 1. Cholelithiasis with gallbladder wall thickening concerning for cholecystitis. 2. Nonvisualization of the pancreas. 3. Mildly echogenic liver which can be seen with mild hepatic steatosis. Chavez Munoz MD Assessment and Plan Problem List: (1) Preop cardiovascular exam Assessment and Plan: Non-ischemic nuclear stress test; Cleared as a moderate risk patient, no further cardiac risk stratification required. Plavix likely still on board given last dose on Friday and likely to have some platelet inhibitive effect through about Friday. If this is a factor from a surgery perspective a platlet inhibition lab draw could be ordered. (2) Coronary artery disease Assessment and Plan: s/p multiple stents; took plavix last on Friday (3) Cholecystitis Assessment and Plan Will sign off at this time but will be available as needed, please call with any further questions. Problem Qualifiers (1) Coronary artery disease: Bradford Dorado MD Feb 17, 2017 08:44
--- NOTE | 2017-02-17 08:54 | MB ---
cc: ALLEGRA GERARDO MD, ANDREW DATE OF CONSULTATION: 02/15/2017 REASON FOR CONSULTATION Acute cholecystitis. HISTORY OF PRESENT ILLNESS The patient is an 82-year-old male who is currently on vacation from [place] to [place]. The patient developed significant right upper quadrant pain on Friday and presented to the emergency department. He was found to have cholelithiasis. The patient was felt to have symptomatic cholelithiasis and biliary colic and was not admitted as the patient preferred to be treated at home in [place]. Unfortunately the patient developed recurrent, more severe, epigastric pain. He became concerned that possibly this could be his heart as he has a history of CT and was concerned he was having a second heart attack. The patient was evaluated in the chest pain center at [facility] and was found to have no evidence of myocardial ischemia. Further evaluation did again show persistent gallstones, however, the patient was noted to have leukocytosis and gallbladder wall edema on follow-up ultrasound. This was concerning for acute cholecystitis and the patient was admitted for IV antibiotics and general surgery consultation. The patient states currently he feels better. He reports no fevers, chills, night sweats. No nausea, vomiting, constipation or hematochezia. REVIEW OF SYSTEMS A 12-point review of systems is negative except for pertinent positives mentioned above in the history of present illness. PAST MEDICAL HISTORY 1. History of CT, status post stent placement. 2. Neuropathy. 3. Hypothyroidism. 4. Hypertension. 5. Prostate cancer. PAST SURGICAL HISTORY 1. Cardiac stents as above. 2. Thyroidectomy. 3. ACL repair. 4. Lipoma removed from his back. MEDICATIONS 1. Ultram. 2. Zofran. 3. Vitamins. 4. Simvastatin. 5. Plavix. 6. Aspirin 81 mg. 7. Amlodipine. 8. HCTZ. ALLERGIES PENICILLIN. FAMILY HISTORY Noncontributory. SOCIAL HISTORY The patient denies alcohol, tobacco or illicit drug use. The patient lives in [place]. PHYSICAL EXAMINATION VITAL SIGNS: Pulse 74, respiratory rate 19, blood pressure 130/68. O2 saturation 97%. GENERAL: The patient is a well-developed, well-nourished elderly male in no acute distress. He does not appear acute or chronically ill. HEENT: Head is normocephalic, atraumatic. Pupils round and reactive to light. Sclera is anicteric. Mucous membranes are moist. NECK: Supple. No JVD. LUNGS: Breath sounds are present bilaterally. HEART: Regular rhythm. ABDOMEN: Soft. Tender to palpation in the right upper quadrant without Castorena's sign without focal peritonitis or rebound tenderness. No organomegaly. No surgical scars. Normal bowel sounds. BACK: No CVA tenderness. EXTREMITIES: No clubbing, cyanosis or edema. NEUROLOGIC: The patient is oriented x3, moving all extremities equally. Nonfocal peripheral exam. Cranial nerves II through XII are grossly intact. LABORATORY VALUES White blood cell count is elevated at 13.2, hemoglobin 14.9. IMAGING Ultrasound of the gallbladder shows cholelithiasis and gallbladder wall thickening concerning for cholecystitis. Nonvisualization of the pancreas. ASSESSMENT The patient is an 82-year-old male with significant cardiac co-morbidities on aspirin and Plavix with mild acute cholecystitis. RECOMMENDATIONS Recommend initial treatment with bowel rest, IV fluids and IV antibiotics. The patient could undergo surgery through an anticoagulation window off his Plavix if okay by cardiology versus nonoperative management with IV antibiotics. I discussed these options with the patient and he would prefer to undergo surgery here and if that is feasible to prevent further recurrence of this problem. We will follow along with the patient and ask cardiology to wee the patient and clear him for surgery later this week. Thank you very much for this consultation. We will follow along with the patient. MD NIRALI Pulido/CHICO /8:25 AM /8:43 AM
--- NOTE | 2017-02-17 09:39 | HHI.PR ---
Subjective Remarks Follow-up for acute cholecystitis Patient deny any nausea vomiting. He continues to remain nothing by mouth. He stated that his headache resolved. Patient stated that he has mild right upper quadrant pain with palpation. Objective Vitals Vital Signs Date Time Temp Pulse Resp B/P Pulse Ox O2 Delivery O2 Flow Rate FiO2 02/17/17 08:00 99.0 68 17 126/59 94 02/17/17 04:00 98.8 69 18 100/53 93 02/17/17 00:05 98.0 73 18 127/61 92 02/16/17 20:00 99.0 70 17 132/67 97 02/16/17 16:46 99.4 82 19 137/75 94 02/16/17 12:00 100.0 81 16 143/66 94 I/O 02/16/17 02/16/17 02/16/17 02/17/17 02/17/17 02/17/17 07:00 15:00 23:00 07:00 15:00 23:00 Intake Total 0 ml 0 ml 212 ml 652 ml Output Total 400 ml 450 ml 200 ml Balance 0 ml -400 ml -238 ml 452 ml Intake Oral 0 ml 0 ml 0 ml IV Total 212 ml 652 ml Output Urine Total 400 ml 450 ml 200 ml # Voids 2 # Bowel Movements 0 0 0 Result Diagram: 02/16/1732902/16/17329 Objective Remarks GENERAL: In no acute distress CARDIOVASCULAR: Regular rate and rhythm without murmurs, gallops, or rubs. RESPIRATORY: Breath sounds equal bilaterally. No accessory muscle use. GASTROINTESTINAL: Abdomen soft, + mild TTP in RUQ, nondistended. neuro AAO X3, CN 2-12 is intact. Motor and sensation grossly intact. Medications and IVs Current Medications Ciprofloxacin/ Dextrose 200 ml @ 200 mls/hr ONCE ONCE IV Last administered on 02/15/17 17:59; Start 02/15/17 at 17:45; Stop 02/15/17 at 18:44; Status DC Metronidazole (Flagyl 500 Mg Inj) 100 ml @ 100 mls/hr ONCE ONCE IV Last administered on 02/15/17 19:12; Start 02/15/17 at 17:45; Stop 02/15/17 at 18:44; Status DC Morphine Sulfate (Morphine Inj) 4 mg ONCE ONCE IV PUSH Last administered on 17:58; Start 02/15/17 at 17:45; Stop 02/15/17 at 17:46; Status DC Ondansetron HCl (Zofran Inj) 4 mg Q6H PRN IVP NAUSEA OR VOMITING; Start at 19:30 Hydromorphone HCl (Dilaudid Pf Inj) 0.2 mg Q3H PRN IV Pain 3-10 if unable to take PO Last administered on 02/16/17 16:57; Start 02/15/17 at 19:30 Naloxone HCl (Narcan Inj) 0.4 mg UNSCH PRN IV SEE LABEL COMMENTS; Start at 19:30 Magnesium Hydroxide (Milk Of Magnesia Liq) 30 ml Q12H PRN PO MILD - MODERATE CONSTIPATION; Start 02/15/17 at 19:30 Sennosides (Senokot) 17.2 mg Q12H PRN PO MODERATE - SEVERE CONSTIPATION; Start 02/15/17 at 19:30 Bisacodyl (Dulcolax Supp) 10 mg DAILY PRN RECTAL SEVERE CONSITIPATION; Start at 19:30 Lactulose 30 ml 30 ml DAILY PRN PO SEVERE CONSITIPATION; Start 02/15/17 at 19:30 Metronidazole 100 ml @ 100 mls/hr Q8H IV Last administered on 02/17/17 03:00 ; Start 02/16/17 at 03:00 Ciprofloxacin/ Dextrose 200 ml @ 200 mls/hr Q12H IV Last administered on 05:21; Start 02/16/17 at 06:00 Sodium Chloride (NS 1000 ml Inj) 1,000 ml @ 70 mls/hr [id number] IV Last administered on 02/17/17 00:03; Start 02/16/17 at 09:45 Regadenoson (Lexiscan Inj) 0.4 mg STK-MED ONCE .ROUTE Last administered on 15:11; Start 02/16/17 at 15:11; Stop 02/16/17 at 15:12; Status DC A/P Problem List: (1) Cholecystitis ICD Code: K81.9 Status: Acute (2) Leukocytosis ICD Code: D72.829 Status: Acute (3) Coronary artery disease ICD Code: I25.10 Status: Chronic Assessment and Plan 82 y/o male with a history of [place] with cardiac stents presented to the ED with complaints of epigastric pain. Cholecystitis, acute -Ultrasound of Gallbladder shows Cholelithiasis with gallbladder wall thickening concerning for cholecystitis. Nonvisualization of the pancreas. Mildly echogenic liver which can be seen with mild hepatic steatosis. -Patient currently on Cipro and Flagyl. -Patient cleared by occupational therapist rehab manager moderate risk. Per occupational therapist rehab manager Plavix may have some effects until Friday. If this is a factor from a surgery perspective a platelet inhibition lab draw could be ordered. Surgery to determine. -d/w surgery in regards to date of surgery. Leukocytosis, WBC is 13.0 likely due to cholecystitis -Antibiotics as above CAD, chronic, patient with history of [place] and stent placement -continue home medication. -Multi Slide Machine Tender consulted for cardiac clearance. DVT prophylaxis: SCDs Discharge Planning Patient needs cholecystectomy but has recently been on Plavix. Surgeon to determine the date of surgery. Problem Qualifiers (1) Coronary artery disease: Laura Graham MD Feb 17, 2017 09:39
[2017-02-17] MEDS ORDERED: MECLIZINE HCL 25 MG TAB PO PRN (09:45)
[2017-02-17 12:00] VITALS: BP 120/61; PULSE 69; RESP 16; TEMP 98.3; O2SAT 95
--- NOTE | 2017-02-17 15:29 | HHI.PR ---
Subjective Subjective Notes Resting in bed Thirsty Objective Vitals/I&O Vital Signs Date Time Temp Pulse Resp B/P Pulse Ox O2 Delivery O2 Flow Rate FiO2 02/17/17 12:00 98.3 69 16 120/61 95 02/15/17 19:08 Room Air Cardiovascular: Regular Lungs: Clear Abdomen: Non-distended, Other (minimal tenderness in RUQ with deep palpation ) Extremities: No edema A/P Assessment and Plan 82 year old male with history of [place] and stent placement on Plavix with acute cholecystitis -Cardiology evaluation patient---patient cleared for surgery and states Plavix will be cleared out of his system by Friday -Plan for OR Friday with Dr. Huynh -Clear liquids -Continue to hold Plavix -OOB and mobilize -Continue Cipro/Flagyl Attending Statement The exam, history, and the medical decision-making described in the above note were completed with the assistance of the mid-level provider. I reviewed and agree with the findings presented. I attest that I had a [id number] encounter with the patient on the same day, and personally performed and documented my assessment and findings in the medical record. abdominal exam: non-distended, no rebound or peritonitis no RUQ pain currently ok for surgery this week once off plavix for 3-5 days Monica Kerr Feb 17, 2017 15:29 eRece Huynh MD Feb 19, 2017 10:43
[2017-02-17 16:00] VITALS: BP 137/64; PULSE 72; RESP 16; TEMP 97.5; O2SAT 96
[2017-02-17 20:00] VITALS: BP 138/68; PULSE 74; RESP 20; TEMP 98.9; O2SAT 95
[2017-02-18] VITALS (7 sets, daily range): BP systolic 137–148; BP diastolic 69–80; PULSE 64–73; RESP 16–20; TEMP 96.2–98.2; O2SAT 95–98
[2017-02-18] MEDS: metroNIDAZOLE 500 MG INJ 100 ML IV SCH ×3 (04:27→16:31)
[2017-02-18] MEDS: CIPROFLOXACIN 400 MG PREMIX 200 ML IV SCH ×2 (04:28→16:30)
[2017-02-18] MEDS: SODIUM CHLOR 0.9% 1000 ML INJ 1,000 ML IV SCH ×2 (04:29→16:31)
[2017-02-18 05:27] LABS: HEMATOCRIT 41.2 % (39.0-51.0); MEAN CELL VOLUME 92.7 FL (80.0-100.0); MEAN CORPUSCULAR HEMOGLOBIN 31.8 PG (27.0-34.0); MEAN CORPUSCULAR HGB CONC 34.3 % (32.0-36.0); PLATELET COUNT 172 TH/MM3 (150-450); RED BLOOD COUNT 4.44 MIL/MM3 (4.50-5.90); RED CELL DISTRIBUTION WIDTH 12.8 % (11.6-17.2); REVIEW FLAG FINAL; WHITE BLOOD COUNT 7.3 TH/MM3 (4.0-11.0)
[2017-02-18 05:42] LABS: BICARBONATE 26.2 MEQ/L (21.0-32.0); POTASSIUM 3.2 MEQ/L (3.5-5.1)
[2017-02-18] MEDS ORDERED: POTASSIUM CHLORIDE 20 MEQ CONTROLLED RELEASE TAB PO ONE (10:00)
--- NOTE | 2017-02-18 10:35 | HHI.PR ---
Subjective Subjective Notes Resting in bed Tolerating clear liquids Objective Vitals/I&O Vital Signs Date Time Temp Pulse Resp B/P Pulse Ox O2 Delivery O2 Flow Rate FiO2 02/18/17 08:00 96.2 64 18 142/80 96 02/15/17 19:08 Room Air Labs Laboratory Tests Test 02/18/17 04:26 White Blood Count 7.3 Red Blood Count 4.44 Hemoglobin 14.1 Hematocrit 41.2 Mean Corpuscular Volume 92.7 Mean Corpuscular Hemoglobin 31.8 Mean Corpuscular Hemoglobin 34.3 Concent Red Cell Distribution Width 12.8 Platelet Count 172 Mean Platelet Volume 8.2 Sodium Level 141 Potassium Level 3.2 Chloride Level 108 Carbon Dioxide Level 26.2 Anion Gap 7 Blood Urea Nitrogen 10 Creatinine 1.05 Estimat Glomerular Filtration 68 Rate Random Glucose 102 Calcium Level 8.2 Cardiovascular: Regular Lungs: Clear Abdomen: Other (minimal RUQ pain otherwise abdomen soft non distended ) Extremities: No edema A/P Assessment and Plan 82 year old male with history of [place] and stent placement on Plavix with acute cholecystitis -Cardiology evaluation patient---patient cleared for surgery and states Plavix will be cleared out of his system by Friday -Plan for OR tomorrow with Dr. Huynh -Clear liquids, NPO after MN -Obtain consents -Continue to hold Plavix -OOB and mobilize -Continue Cipro/Flagyl -Discussed with BILLY Jewell Attending Statement The exam, history, and the medical decision-making described in the above note were completed with the assistance of the mid-level provider. I reviewed and agree with the findings presented. I attest that I had a [id number] encounter with the patient on the same day, and personally performed and documented my assessment and findings in the medical record. abdominal exam: non-distended, no rebound or peritonitis ok for surgery tomorrow Monica Kerr Feb 18, 2017 10:35 Reece Huynh MD Feb 19, 2017 10:43
--- NOTE | 2017-02-18 12:08 | HHI.PR ---
Subjective Remarks Follow-up for acute cholecystitis Patient denies any pain, nausea, and vomiting. He remains afebrile. Patient had a little vertigo when he sits up which is chronic. He stated that he does not like taking any medication for because it only lasts for seconds. Objective Vitals Vital Signs Date Time Temp Pulse Resp B/P Pulse Ox O2 Delivery O2 Flow Rate FiO2 02/18/17 08:00 96.2 64 18 142/80 96 02/18/17 04:00 97.8 67 20 142/70 95 02/18/17 00:00 97.0 67 20 137/69 96 02/17/17 20:00 98.9 74 20 138/68 95 02/17/17 16:00 97.5 72 16 137/64 96 I/O 02/17/17 02/17/17 02/17/17 02/18/17 02/18/17 02/18/17 07:00 15:00 23:00 07:00 15:00 23:00 Intake Total 652 ml 854 ml 960 ml 870 ml Output Total 200 ml 800 ml 1075 ml 400 ml Balance 452 ml 54 ml -115 ml 470 ml Intake Oral 0 ml 120 ml 360 ml 120 ml IV Total 652 ml 734 ml 600 ml 750 ml Output Urine Total 200 ml 800 ml 1075 ml 400 ml # Bowel Movements 0 0 Result Diagram: 02/18/1742502/18/17425 Objective Remarks GENERAL: In no acute distress CARDIOVASCULAR: Regular rate and rhythm without murmurs, gallops, or rubs. RESPIRATORY: Breath sounds equal bilaterally. No accessory muscle use. GASTROINTESTINAL: Abdomen soft, non TTP in RUQ, nondistended. neuro AAO X3, CN 2-12 is intact. Motor and sensation grossly intact. Medications and IVs Current Medications Ciprofloxacin/ Dextrose 200 ml @ 200 mls/hr ONCE ONCE IV Last administered on 02/15/17 17:59; Start 02/15/17 at 17:45; Stop 02/15/17 at 18:44; Status DC Metronidazole (Flagyl 500 Mg Inj) 100 ml @ 100 mls/hr ONCE ONCE IV Last administered on 02/15/17 19:12; Start 02/15/17 at 17:45; Stop 02/15/17 at 18:44; Status DC Morphine Sulfate (Morphine Inj) 4 mg ONCE ONCE IV PUSH Last administered on 17:58; Start 02/15/17 at 17:45; Stop 02/15/17 at 17:46; Status DC Ondansetron HCl (Zofran Inj) 4 mg Q6H PRN IVP NAUSEA OR VOMITING; Start at 19:30 Hydromorphone HCl (Dilaudid Pf Inj) 0.2 mg Q3H PRN IV Pain 3-10 if unable to take PO Last administered on 02/16/17 16:57; Start 02/15/17 at 19:30 Naloxone HCl (Narcan Inj) 0.4 mg UNSCH PRN IV SEE LABEL COMMENTS; Start at 19:30 Magnesium Hydroxide (Milk Of Magnesia Liq) 30 ml Q12H PRN PO MILD - MODERATE CONSTIPATION; Start 02/15/17 at 19:30 Sennosides (Senokot) 17.2 mg Q12H PRN PO MODERATE - SEVERE CONSTIPATION; Start 02/15/17 at 19:30 Bisacodyl (Dulcolax Supp) 10 mg DAILY PRN RECTAL SEVERE CONSITIPATION; Start at 19:30 Lactulose 30 ml 30 ml DAILY PRN PO SEVERE CONSITIPATION; Start 02/15/17 at 19:30 Metronidazole 100 ml @ 100 mls/hr Q8H IV Last administered on 02/18/17 11:00 ; Start 02/16/17 at 03:00 Ciprofloxacin/ Dextrose 200 ml @ 200 mls/hr Q12H IV Last administered on 04:28; Start 02/16/17 at 06:00 Sodium Chloride (NS 1000 ml Inj) 1,000 ml @ 70 mls/hr [id number] IV Last administered on 02/18/17 04:29; Start 02/16/17 at 09:45 Regadenoson (Lexiscan Inj) 0.4 mg STK-MED ONCE .ROUTE Last administered on 15:11; Start 02/16/17 at 15:11; Stop 02/16/17 at 15:12; Status DC Meclizine HCl (Antivert) 25 mg Q6H PRN PO vertigo; Start 02/17/17 at 09:45 Potassium Chloride (KCl) 40 meq ONCE ONCE PO Last administered on 02/18/17t 10 :00; Start 02/18/17 at 10:00; Stop 02/18/17 at 10:01; Status DC A/P Problem List: (1) Cholecystitis ICD Code: K81.9 Status: Acute (2) Leukocytosis ICD Code: D72.829 Status: Acute (3) Coronary artery disease ICD Code: I25.10 Status: Chronic Assessment and Plan 82 y/o male with a history of [place] with cardiac stents presented to the ED with complaints of epigastric pain. Cholecystitis, acute -Ultrasound of Gallbladder shows Cholelithiasis with gallbladder wall thickening concerning for cholecystitis. Nonvisualization of the pancreas. Mildly echogenic liver which can be seen with mild hepatic steatosis. -Patient currently on Cipro and Flagyl. -Patient cleared by branch service associate moderate risk. Per branch service associate Plavix may have some effects until Friday. If this is a factor from a surgery perspective a platelet inhibition lab draw could be ordered. Surgery to determine. -Patient scheduled for surgery tomorrow. Leukocytosis, WBC is 13.0 likely due to cholecystitis -Resolved. -Antibiotics as above CAD, chronic, patient with history of [place] and stent placement -continue home medication. Plavix held. -Summer School Coordinator consulted for cardiac clearance. DVT prophylaxis: SCDs Discharge Planning Patient schedule for surgery tomorrow. Problem Qualifiers (1) Coronary artery disease: Laura Graham MD Feb 18, 2017 12:08
[2017-02-18 22:24] LABS: BICARBONATE 24.9 MEQ/L (21.0-32.0); POTASSIUM 3.6 MEQ/L (3.5-5.1)
[2017-02-19] VITALS (8 sets, daily range): BP systolic 126–152; BP diastolic 63–87; PULSE 58–74; RESP 16–18; TEMP 97.2–98.5; O2SAT 93–97
[2017-02-19] MEDS: metroNIDAZOLE 500 MG INJ 100 ML IV SCH ×3 (01:57→17:36)
[2017-02-19 05:40] LABS: HEMATOCRIT 40.5 % (39.0-51.0); MEAN CELL VOLUME 93.4 FL (80.0-100.0); MEAN CORPUSCULAR HEMOGLOBIN 30.8 PG (27.0-34.0); PLATELET COUNT 182 TH/MM3 (150-450); RED BLOOD COUNT 4.34 MIL/MM3 (4.50-5.90); RED CELL DISTRIBUTION WIDTH 12.8 % (11.6-17.2); REVIEW FLAG FINAL; WHITE BLOOD COUNT 7.2 TH/MM3 (4.0-11.0)
[2017-02-19] MEDS: CIPROFLOXACIN 400 MG PREMIX 200 ML IV SCH ×2 (06:12→19:38)
[2017-02-19] MEDS: SODIUM CHLOR 0.9% 1000 ML INJ 1,000 ML IV SCH ×2 (09:51→21:52)
--- NOTE | 2017-02-19 10:35 | HHI.PR ---
Subjective Remarks Follow-up for acute cholecystitis Patient remains afebrile. He denies any abdominal pain, nausea or vomiting. Patient is currently nothing by mouth for surgery today. He has no other complaints. Objective Vitals Vital Signs Date Time Temp Pulse Resp B/P Pulse Ox O2 Delivery O2 Flow Rate FiO2 02/19/17 08:00 97.2 67 17 133/75 97 02/19/17 04:00 97.7 62 17 133/63 95 02/19/17 00:00 97.7 59 17 143/73 95 02/18/17 20:40 66 02/18/17 20:00 98.2 67 18 147/74 95 02/18/17 16:00 96.7 73 18 148/80 98 02/18/17 12:00 96.4 67 16 142/69 96 I/O 02/18/17 02/18/17 02/18/17 02/19/17 02/19/17 02/19/17 07:00 15:00 23:00 07:00 15:00 23:00 Intake Total 870 ml 340 ml 2249 ml 527 ml Output Total 400 ml 350 ml 200 ml Balance 470 ml 340 ml 1899 ml 327 ml Intake Oral 120 ml 340 ml 240 ml 0 ml IV Total 750 ml 2009 ml 527 ml Output Urine Total 400 ml 350 ml 200 ml # Voids 4 # Bowel Movements 3 Result Diagram: 02/19/1742402/18/172122 Objective Remarks GENERAL: In no acute distress CARDIOVASCULAR: Regular rate and rhythm without murmurs, gallops, or rubs. RESPIRATORY: Breath sounds equal bilaterally. No accessory muscle use. GASTROINTESTINAL: Abdomen soft, no TTP, nondistended. neuro AAO X3, CN 2-12 is intact. Motor and sensation grossly intact. Medications and IVs Current Medications Ciprofloxacin/ Dextrose 200 ml @ 200 mls/hr ONCE ONCE IV Last administered on 02/15/17 17:59; Start 02/15/17 at 17:45; Stop 02/15/17 at 18:44; Status DC Metronidazole (Flagyl 500 Mg Inj) 100 ml @ 100 mls/hr ONCE ONCE IV Last administered on 02/15/17 19:12; Start 02/15/17 at 17:45; Stop 02/15/17 at 18:44; Status DC Morphine Sulfate (Morphine Inj) 4 mg ONCE ONCE IV PUSH Last administered on 17:58; Start 02/15/17 at 17:45; Stop 02/15/17 at 17:46; Status DC Ondansetron HCl (Zofran Inj) 4 mg Q6H PRN IVP NAUSEA OR VOMITING; Start at 19:30 Hydromorphone HCl (Dilaudid Pf Inj) 0.2 mg Q3H PRN IV Pain 3-10 if unable to take PO Last administered on 02/16/17 16:57; Start 02/15/17 at 19:30 Naloxone HCl (Narcan Inj) 0.4 mg UNSCH PRN IV SEE LABEL COMMENTS; Start at 19:30 Magnesium Hydroxide (Milk Of Magnesia Liq) 30 ml Q12H PRN PO MILD - MODERATE CONSTIPATION; Start 02/15/17 at 19:30 Sennosides (Senokot) 17.2 mg Q12H PRN PO MODERATE - SEVERE CONSTIPATION; Start 02/15/17 at 19:30 Bisacodyl (Dulcolax Supp) 10 mg DAILY PRN RECTAL SEVERE CONSITIPATION; Start at 19:30 Lactulose 30 ml 30 ml DAILY PRN PO SEVERE CONSITIPATION; Start 02/15/17 at 19:30 Metronidazole 100 ml @ 100 mls/hr Q8H IV Last administered on 02/19/17 01:57 ; Start 02/16/17 at 03:00 Ciprofloxacin/ Dextrose 200 ml @ 200 mls/hr Q12H IV Last administered on 06:12; Start 02/16/17 at 06:00 Sodium Chloride (NS 1000 ml Inj) 1,000 ml @ 70 mls/hr [id number] IV Last administered on 02/19/17 09:51; Start 02/16/17 at 09:45 Regadenoson (Lexiscan Inj) 0.4 mg STK-MED ONCE .ROUTE Last administered on 15:11; Start 02/16/17 at 15:11; Stop 02/16/17 at 15:12; Status DC Meclizine HCl (Antivert) 25 mg Q6H PRN PO vertigo; Start 02/17/17 at 09:45 Potassium Chloride (KCl) 40 meq ONCE ONCE PO Last administered on 02/18/17t 10 :00; Start 02/18/17 at 10:00; Stop 02/18/17 at 10:01; Status DC A/P Problem List: (1) Cholecystitis ICD Code: K81.9 Status: Acute (2) Leukocytosis ICD Code: D72.829 Status: Acute (3) Coronary artery disease ICD Code: I25.10 Status: Chronic Assessment and Plan 82 y/o male with a history of [place] with cardiac stents presented to the ED with complaints of epigastric pain. Cholecystitis, acute -Ultrasound of Gallbladder shows Cholelithiasis with gallbladder wall thickening concerning for cholecystitis. Nonvisualization of the pancreas. Mildly echogenic liver which can be seen with mild hepatic steatosis. -Patient currently on Cipro and Flagyl. -Patient cleared by endorsement clerk moderate risk. Per endorsement clerk Plavix may have some effects until Friday. If this is a factor from a surgery perspective a platelet inhibition lab draw could be ordered. Surgery to determine. -Patient scheduled for surgery today. He is currently nothing by mouth. Leukocytosis, WBC is 13.0 likely due to cholecystitis -Resolved. -Antibiotics as above CAD, chronic, patient with history of [place] and stent placement -continue home medication. Plavix held. -Double Back Operator consulted for cardiac clearance. Patient cleared. DVT prophylaxis: SCDs Discharge Planning Patient schedule for surgery today. If patient does well after surgery and tolerates his diet most likely can be discharged tomorrow. Problem Qualifiers (1) Coronary artery disease: Laura Graham MD Feb 19, 2017 10:35
[2017-02-19] MEDS ORDERED: PROPOFOL 200 MG/20 ML AMP IV ONE (12:00)
[2017-02-19] MEDS ORDERED: ONDANSETRON HCL 4 MG/2 ML VIAL IV PUSH ONE (12:00)
[2017-02-19] MEDS ORDERED: PHENYLEPH/NS 1000 MCG/10 ML SYR IV ONE (12:00)
[2017-02-19] MEDS ORDERED: ACETAMINOPHEN 1000 MG/100 ML VIAL IV ONE (16:38)
[2017-02-19] MEDS ORDERED: BUPIVACAINE HCL PF 0.5% 30 ML VIAL ONE (17:31)
[2017-02-19] MEDS ORDERED: LIDOCAINE HCL 1% 20 ML VIAL INFIL ONE (17:38)
[2017-02-19] MEDS ORDERED: SUGAMMADEX SODIUM 200 MG/2 ML VIAL IV PUSH ONE ×2 (18:22)
[2017-02-19] MEDS ORDERED: fentaNYL CITRATE 250 MCG/5 ML AMP ONE (18:52)
[2017-02-19] MEDS ORDERED: MIDAZOLAM HCL 2 MG/2 ML VIAL ONE (18:52)
[2017-02-19] MEDS ORDERED: ACETAMINOPHEN/HYDROcodone 325 MG/5 MG TAB PO PRN ×2 (19:00)
--- NOTE | 2017-02-19 19:01 | HHI.PR ---
Immediate Post Op Note Procedure Date: Feb 19, 2017 Pre Op Diagnosis: (1) Acute cholecystitis due to biliary calculus Post Op Diagnosis: (1) Acute cholecystitis due to biliary calculus Surgeon: Reece Huynh Communication Manager(s): Niranjan Molina MS# Procedure: lap victoria Findings: acute cholecystitis Complications: none Specimen(s) removed: GB Estimated blood loss: 10ml Anesthesia: General, Local Drains: None IVF Patient to: PACU Patient Condition: Good Reece Huynh MD Feb 19, 2017 19:01
[2017-02-19] MEDS ORDERED: metroNIDAZOLE 500 MG INJ 100 ML IV SCH ×2 (19:45)
[2017-02-19] MEDS ORDERED: DO NOT ADM ANY ANTICOAGULANT DRUGS PRN (20:45)
[2017-02-19] MEDS ORDERED: TEMAZEPAM 7.5 MG CAP PO ONE (22:45)
[2017-02-20] VITALS: BP 146/76; PULSE 69; RESP 18; TEMP 97.9; O2SAT 96
[2017-02-20] MEDS: metroNIDAZOLE 500 MG INJ 100 ML IV SCH ×2 (00:48→08:46)
[2017-02-20] MEDS: HYDROmorphone HCL PF 1 MG/ML VIAL IV PRN ×2 (00:50→03:56)
[2017-02-20 04:00] VITALS: BP 176/76; PULSE 67; RESP 18; TEMP 97.5; O2SAT 96
[2017-02-20 08:00] VITALS: BP 174/80; PULSE 72; RESP 19; TEMP 98.7; O2SAT 95
[2017-02-20 08:34] LABS: HEMATOCRIT 44.7 % (39.0-51.0); MEAN CELL VOLUME 93.6 FL (80.0-100.0); MEAN CORPUSCULAR HGB CONC 33.1 % (32.0-36.0); PLATELET COUNT 175 TH/MM3 (150-450); RED BLOOD COUNT 4.78 MIL/MM3 (4.50-5.90); RED CELL DISTRIBUTION WIDTH 12.9 % (11.6-17.2); REVIEW FLAG FINAL
[2017-02-20] MEDS: CIPROFLOXACIN 400 MG PREMIX 200 ML IV SCH (08:46)
[2017-02-20] MEDS ORDERED: CHOLECALCIFEROL (VIT D3) 1000 UNIT TAB PO SCH (09:00)
[2017-02-20] MEDS ORDERED: HYDROCHLOROTHIAZIDE 12.5 MG CAP PO SCH (09:00)
[2017-02-20 09:06] LABS: BICARBONATE 22.5 MEQ/L (21.0-32.0)
[2017-02-20 09:08] LABS: POTASSIUM 4.3 MEQ/L (3.5-5.1)
--- NOTE | 2017-02-20 10:09 | HHI.PR ---
Subjective Remarks Follow-up for abdominal pain Mild abdominal pain, he just took his hydrocodone. No nausea or vomiting. Hasn 't moved his bowels. Passing gas. Afebrile. Objective Vitals Vital Signs Date Time Temp Pulse Resp B/P Pulse Ox O2 Delivery O2 Flow Rate FiO2 02/20/17 08:00 98.7 72 19 174/80 95 02/20/17 04:00 97.5 67 18 176/76 96 02/20/17 00:00 97.9 69 18 146/76 96 02/19/17 22:16 93 Nasal Cannula 2.00 02/19/17 20:19 65 02/19/17 20:00 97.3 74 17 126/71 93 02/19/17 19:45 97.7 66 14 155/78 98 Nasal Cannula 2 02/19/17 19:30 64 14 158/80 98 Nasal Cannula 2 02/19/17 19:15 63 14 162/82 99 Nasal Cannula 2 02/19/17 19:00 64 14 164/83 98 Nasal Cannula 2 02/19/17 18:43 97.2 74 14 177/80 98 Nasal Cannula 4 02/19/17 16:00 98.5 63 16 135/64 97 02/19/17 12:00 97.8 58 18 152/87 97 I/O 02/19/17 02/19/17 02/19/17 02/20/17 02/20/17 02/20/17 07:00 15:00 23:00 07:00 15:00 23:00 Intake Total 527 ml 711 ml 1510 ml 694 ml Output Total 200 ml 400 ml 450 ml 400 ml Balance 327 ml 311 ml 1060 ml 294 ml Intake Oral 0 ml 0 ml 240 ml 240 ml IV Total 527 ml 711 ml 270 ml 454 ml Other 1000 ml Output Urine Total 200 ml 400 ml 400 ml 400 ml Estimated Blood Loss 50 ml # Bowel Movements 1 Result Diagram: 02/20/17 0736 02/20/17 0736 Objective Remarks GENERAL: In no acute distress CARDIOVASCULAR: Regular rate and rhythm without murmurs, gallops, or rubs. RESPIRATORY: Breath sounds equal bilaterally. No accessory muscle use. GASTROINTESTINAL: Abdomen soft, no TTP, nondistended. neuro AAO X3, CN 2-12 is intact. Motor and sensation grossly intact. A/P Problem List: (1) Cholecystitis ICD Code: K81.9 Status: Acute (2) Leukocytosis ICD Code: D72.829 Status: Acute (3) Coronary artery disease ICD Code: I25.10 Status: Chronic Assessment and Plan 82 y/o male with a history of [place] with cardiac stents presented to the ED with complaints of epigastric pain. Cholecystitis, acute -Ultrasound of Gallbladder shows Cholelithiasis with gallbladder wall thickening concerning for cholecystitis. Nonvisualization of the pancreas. Mildly echogenic liver which can be seen with mild hepatic steatosis. -Patient currently on Cipro and Flagyl. -Status post cholecystectomy 02/19/17. Pain moderately controlled. CAD, chronic, patient with history of [place] and stent placement -continue home medication. Plavix held, restart Plavix if okay with surgery -Airway Controller consulted for cardiac clearance. Patient cleared. DVT prophylaxis: SCDs Discharge Planning Discharge today once cleared by surgery if pain is controlled Problem Qualifiers (1) Coronary artery disease: Dixon Bartholomew MD Feb 20, 2017 10:08
[2017-02-20] MEDS ORDERED: METR-1 PO (10:13)
[2017-02-20] MEDS ORDERED: SENN8.6T15 PO (10:13)
[2017-02-20] MEDS ORDERED: OXYC1TAB36 PO (10:13)
[2017-02-20] MEDS ORDERED: CIPR-9 PO (10:13)
[2017-02-20] MEDS ORDERED: oxyCODONE/ACETAMINOPHEN 5 MG/325 MG TAB PO PRN (10:15)
[2017-02-20] MEDS ORDERED: oxyCODONE/ACETAMINOPHEN 10 MG/325 MG TAB PO PRN (10:15)
[2017-02-20] MEDS ORDERED: NALOXONE HCL 0.4 MG/ML AMP IV PRN (10:15)
--- NOTE | 2017-02-20 11:15 | HHI.PR ---
Subjective Subjective Notes Resting in bed Painful Little appetite Objective Vitals/I&O Vital Signs Date Time Temp Pulse Resp B/P Pulse Ox O2 Delivery O2 Flow Rate FiO2 02/20/17 08:00 98.7 72 19 174/80 95 02/19/17 22:16 Nasal Cannula 2.00 Labs Laboratory Tests Test 02/20/17 07:36 White Blood Count 9.0 Red Blood Count 4.78 Hemoglobin 14.8 Hematocrit 44.7 Mean Corpuscular Volume 93.6 Mean Corpuscular Hemoglobin 31.0 Mean Corpuscular Hemoglobin 33.1 Concent Red Cell Distribution Width 12.9 Platelet Count 175 Mean Platelet Volume 8.4 Sodium Level 136 Potassium Level 4.3 Chloride Level 105 Carbon Dioxide Level 22.5 Anion Gap 9 Blood Urea Nitrogen 8 Creatinine 0.94 Estimat Glomerular Filtration 77 Rate Random Glucose 102 Calcium Level 8.4 Cardiovascular: Regular Lungs: Clear Abdomen: Other (lap sites c/d/i; abd tender; non distended ) Extremities: No edema A/P Assessment and Plan 82 year old male with history of KS and stent placement on Plavix with acute cholecystitis -POD1 lap victoria -Pain control -OOB and mobilize -Heart healthy diet -DC fluids -If pain controlled on PO pain meds and able to tolerate diet okay to DC from GS standpoint this afternoon -May require one more overnight if pain not tolerable -Okay to start Plavix Friday -Patient from [place] ---will follow up with PCP in [place] Monica Kerr Feb 20, 2017 11:15
[2017-02-20 12:00] VITALS: BP 158/74; PULSE 78; RESP 20; TEMP 97.4; O2SAT 94
[2017-02-20 12:32] VITALS: O2SAT 96
--- NOTE | 2017-02-20 15:46 | HHI.DS ---
Discharge Summary Admission Date Feb 15, 2017 at 18:39 Discharge Date: Feb 20, 2017 Admitting Diagnosis cholecystitis (1) Cholecystitis ICD Code: K81.9 Diagnosis: Principal (2) Leukocytosis ICD Code: D72.829 Diagnosis: Secondary (3) Coronary artery disease ICD Code: I25.10 Diagnosis: Secondary Procedures laparascopic cholecystectomy Brief History - From Admission Written by SAMARA Jiang acting as scribe for Dr. Valdez] on 02/15/17 at 20:03. 82 y/o male with a history of MS with cardiac stents presented to the ED with complaints of epigastric pain. Patient states he got up to go to the bathroom and felt sharp pain in his epigastric region, and he felt he may have been having another MS. He tried to vomit but no emesis produced. He states the abdominal pain was sharp and now is much better since receiving medications. He states at home he did have a fever, no chills. Denies any chest pain, shortness of breath, constipation or diarrhea. 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 CBC/BMP: 02/20/17 0736 02/20/17 0736 Significant Findings Laboratory Tests Test 02/18/17 02/18/17 02/19/17 02/20/17 04:26 21:23 04:25 07:36 Red Blood Count 4.44 MIL/MM3 4.34 MIL/MM3 (4.50-5.90) (4.50-5.90) Potassium Level 3.2 MEQ/L (3.5-5.1) Chloride Level 108 MEQ/L 108 MEQ/L (98-107) (98-107) Estimat Glomerular Filtration 68 ML/MIN (>89) 73 ML/MIN (>89) 77 ML/MIN (>89) Rate Calcium Level 8.2 MG/DL 8.3 MG/DL 8.4 MG/DL (8.5-10.1) (8.5-10.1) (8.5-10.1) Random Glucose 133 MG/DL (74-106) PE at Discharge GENERAL: In no acute distress CARDIOVASCULAR: Regular rate and rhythm without murmurs, gallops, or rubs. RESPIRATORY: Breath sounds equal bilaterally. No accessory muscle use. GASTROINTESTINAL: Abdomen soft, no TTP, nondistended. neuro AAO X3, CN 2-12 is intact. Motor and sensation grossly intact. Hospital Course This is a 82 y/o male with a history of MS with cardiac stents presented to the ED with complaints of epigastric pain. Ultrasound of Gallbladder shows Cholelithiasis with gallbladder wall thickening concerning for cholecystitis. Nonvisualization of the pancreas. Mildly echogenic liver which can be seen with mild hepatic steatosis. Surgery was consulted, patient was treated as a case of acute cholecystitis. The patient was started on ciprofloxacin and Flagyl. Patient underwent laparoscopic cholecystectomy after clearance by cardiology. Patient's hospital course was uneventful, patient will be discharged on ciprofloxacin and Flagyl and would follow-up with primary care physician as outpatient. He may restart his Plavix and 3 days. Pt Condition on Discharge: Good Discharge Disposition: Discharge Home Discharge Time: > 30 minutes Discharge Instructions DIET: Follow Instructions for: Heart Healthy Diet Activities you can perform: Regular-No Restrictions Follow up Referrals: PCP Follow-up - 2 Weeks Surgical - 1 Week with Reece Huynh MD New Medications: Ciprofloxacin (Cipro) 500 Mg Tab 500 MG PO BID Infection #12 Ref 0 TAB Metronidazole (Flagyl) 500 Mg Tab 500 MG PO TID Infection #18 Ref 0 TAB Oxycodone-Acetaminophen (Oxycodone-Acetaminophen) 10-325 mg Tab 1 TAB PO Q6H PRN PAIN SCALE 6 TO 10 #30 TAB Sennosides (Senna Lax) 8.6 Mg Tab 17.2 MG PO Q12H PRN MODERATE - SEVERE CONSTIPATION #60 TAB Continued Medications: Amlodipine (Amlodipine) 10 Mg Tab 10 MG PO DAILY Blood Pressure Management #30 Ref 0 TAB Aspirin (Aspirin) 81 Mg Chew 81 MG CHEW DAILY Ref 0 TAB Cholecalciferol (Vitamin D3) 1,000 Unit Cap 1000 UNITS PO DAILY Nutritional Supplement #1 Ref 0 BOTTLE Clopidogrel (Plavix) 75 Mg Tab 75 MG PO DAILY Blood Clot Prevention #30 Ref 0 TAB Coenzyme Q10 (Ubidecarenone) (Coq-10) 50 Mg Cap 100 MG PO DAILY Hydrochlorothiazide (Hydrochlorothiazide) 12.5 Mg Cap 10 MG PO DAILY #30 Ref 0 CAP Levothyroxine (Synthroid) 75 Mcg Tab 75 MCG PO DAILY Thyroid #30 Ref 0 TAB Multiple Vitamins W/ Minerals ([place]ro Multivitamin For Men) 1 Tab Tab Ondansetron Odt (Zofran Odt) 4 Mg Tab 4 MG SL Q6HR PRN Nausea/Vomiting #30 Ref 0 TAB Simvastain (Bulk) (Simvastatin) 1 Pow Pow Vitamin E Acetate (Vitamin E) 400 Unit Capsule Discontinued Medications: Tramadol (Ultram) 50 Mg Tab 50 MG PO Q6H PRN PAIN #15 Ref 0 TAB Dixon Bartholomew MD Feb 20, 2017 15:46
[2017-02-20 16:00] VITALS: BP 135/74; PULSE 99; RESP 18; TEMP 96.9; O2SAT 90
== END 2017-02-20 17:49 | disposition home or self-care (01) | DRG 419 ==
LOC: NEPE 16:03 → NEDA 18:39 → N07B 20:46
PROVIDERS: ADMIT Hospitalist; ATTEND Hospitalist
PROC: 0FT44ZZ Resection of Gallbladder, Percutaneous Endoscopic Approach (ICD-10-PCS; principal; 2017-02-19 16:56)
DX: K80.00 Calculus of gallbladder with acute cholecystitis without obstruction (principal); G62.9 Polyneuropathy, unspecified; K76.0 Fatty (change of) liver, not elsewhere classified; I10 Essential (primary) hypertension; E78.00 Pure hypercholesterolemia, unspecified; I25.2 Old myocardial infarction; I25.10 Atherosclerotic heart disease of native coronary artery without angina pectoris; Z95.5 Presence of coronary angioplasty implant and graft; Z85.46 Personal history of malignant neoplasm of prostate; E03.9 Hypothyroidism, unspecified; R42 Dizziness and giddiness
CPT/HCPCS: 76705; 78452; 80048; 80053; 81001; 83690; 85025; 85027; 88304; 93005; 93017; 96374; 96375; A9502; J0131; J0744; J1170; J2250; J2270; J2370; J2405; J2785; J3010; J7030